=== PATIENT | female | born 1960 | race Caucasian/White ===

== ENCOUNTER 2018-02-28 09:34 | Day surgery (SDC) | payer OTHER, SELFPAY ==
[2018-02-28 09:54] VITALS: BP 142/81; PULSE 76; RESP 18; TEMP 36.7; O2SAT 96; BMI 33.4
--- NOTE | 2018-02-28 10:28 | RAD_ITS ---
STUDY: X-RAY - LUMBAR SPINE REASON FOR EXAM: Female, 57 years old. Radiofrequency ablation of L3-S1 in the OR. TECHNIQUE: 14 intraoperative view(s) of the lumbar spine were obtained. COMPARISON: None FINDINGS: Images demonstrate placement of needles at the what is assumed to be the left facet joints at L3-S1. There is evidence of posterior fusion of L4-5. Please refer to the operative report for further details. RAD/L/S Spine Min 4 Views IMPRESSION: Radiofrequency ablation of L3-S1 in the OR. Electronically Signed: Humberto Dunn DO at 13:34 EDT Tel [phone], Service support ,
[2018-02-28] MEDS: Bupivacaine 0.25% 30 ML Vial (10:37)
[2018-02-28] MEDS: MethylPREDNISolone Acetate 80 MG/ML Vial (10:41)
[2018-02-28 10:59] VITALS: BP 136/81; BP 142/81; PULSE 88; RESP 16; TEMP 36.8; O2SAT 98
[2018-02-28 11:05] VITALS: BP 122/67; BP 142/81; PULSE 77; RESP 18; O2SAT 97
[2018-02-28 11:10] VITALS: BP 132/90; BP 142/81; PULSE 72; RESP 18; O2SAT 95
[2018-02-28 11:15] VITALS: BP 142/81; BP 147/96; PULSE 80; RESP 18; TEMP 36.9; O2SAT 75
[2018-02-28 11:35] VITALS: BP 142/81
--- NOTE | 2018-02-28 13:39 | PCM.OPRPT ---
Problem List (1) Degeneration of lumbar or lumbosacral intervertebral disc Status: Chronic (2) Spondylosis of lumbosacral region without myelopathy or radiculopathy Status: Chronic Report of Operation Date of Procedure: 02/28/18 Pre-Operative Diagnosis: Lumbosacral spondylosis, lumbosacral degenerative disc disease, lumbar facet arthropathy Post-Operative Diagnosis: Lumbosacral spondylosis, lumbosacral degenerative disc disease, lumbar facet arthropathy Surgery/Procedure Performed:: Left sided lumbar radiofrequency ablation of the medial branch at L3, L4, L5, S1 Description of Surgical Findings:: PROCEDURE: Left-sided radiofrequency ablation of the medial branch L3, L4, L5, S1 PREOPERATIVE DIAGNOSES: Lumbosacral spondylosis, lumbosacral degenerative disc disease, lumbar facet arthropathy POSTOPERATIVE DIAGNOSES: Lumbosacral spondylosis, lumbosacral degenerative disc disease, lumbar facet arthropathy ANESTHESIA: MAC COMPLICATIONS: None BLOOD LOSS: Minimal PROCEDURE IN DETAIL: History and physical today was reviewed. Risks and benefits of procedure explained. The patient understood, agreed to the procedure and informed consent was obtained. IV inserted per routine protocol. The patient was taken to the operating room, placed in the prone position with a pillow positioned underneath the abdomen. The left side of the lower back was prepped and draped in a sterile fashion using iodine x 3. Under fluoroscopy guidance, on an oblique view, the L3 through S1 vertebral bodies were visualized. The skin and subcutaneous tissue was anesthetized with approximately 10 mL of 1% lidocaine using a 25-gauge regular needle. Under direct visualization with fluoroscopy at approximately 25-degree angle, starting on the left L3, ending on the left S1 passing through the L4-L5 using a 20-gauge 15 cm with a 10 mm curved active tip radiofrequency ablation needle the needle passed through the skin. The tip of the needle was maneuvered and directed towards the superior and medial gutter of the transverse process at the vicinity of the medial branch. Once the tip of the needle was in contact with the bone, the needle pulled approximately 2 mm up the bone. The stylet of each needle was then removed. After negative aspiration of blood with CSF and confirmation of AP as well as oblique view, radiofrequency ablation probe was then inserted at each level. Impedance was then recorded at L3 to be 241, at L4 262, at L5 295, at S1 257 ohm. Motor-evoked potential was then initiated to 1.5 volt without any motor response at each corresponding level. The probe was then removed intact and a total of 6 mL preservative-free 1% lidocaine was injected in divided doses between those 4 levels after negative aspiration of blood with CSF. The radiofrequency ablation probe was then reinserted after confirmation of AP, oblique as well as lateral view. Radiofrequency ablation was then initiated to 80 degrees Celsius for 90 seconds at each level. Once concluded, the probe was then removed intact and a total of 6 mL of preservative-free 0.25% Marcaine with 40 mg Depo-Medrol was injected in divided doses between those 4 levels. The needles were then removed intact. The patient experienced no signs or symptoms of intrathecal, intravascular injection. The patient experienced no paraesthesia. The procedure was completed without any apparent difficulty, any complication. The patient appeared to tolerate well. Sensory as well as motor exam was unchanged from prior to procedure. ASSESSMENT AND PLAN: This is a 57-year-old Female with lumbosacral spondylosis, lumbosacral degenerative disc disease, lumbar facet arthropathy, status post left-sided radiofrequency ablation of the medial branch L3 through S1. The patient will continue her current medications. The patient will follow up in approximately 2 weeks for reevaluation.
== END 2018-02-28 11:35 | disposition home or self-care (01) ==
LOC: SDC 09:35 → AC 09:37
PROVIDERS: Family Provider Student in an Organized Health Care Education/Training Program; PCP Student in an Organized Health Care Education/Training Program; Visit Provider Anesthesiology Pain Medicine
PROC: (CPT 64635; principal; 2018-02-28 10:45)
DX: M51.17 Intervertebral disc disorders with radiculopathy, lumbosacral region (principal); M47.27 Other spondylosis with radiculopathy, lumbosacral region; M96.1 Postlaminectomy syndrome, not elsewhere classified; M46.1 Sacroiliitis, not elsewhere classified; M79.1 Myalgia; M25.552 Pain in left hip; M53.3 Sacrococcygeal disorders, not elsewhere classified; K21.9 Gastro-esophageal reflux disease without esophagitis; F17.200 Nicotine dependence, unspecified, uncomplicated; Z79.891 Long term (current) use of opiate analgesic; Z79.899 Other long term (current) drug therapy
CPT/HCPCS: 01936; 64635; 64636; 72110; 76000; J7120

== ENCOUNTER → 2018-08-16 07:13 | Outpatient (CLI) | payer OTHER, SELFPAY ==
--- NOTE | 2018-08-16 07:17 | CT_ITS ---
STUDY: CT PELVIS WITHOUT CONTRAST REASON FOR EXAM: Female, 58 years old. Pain in the sacroiliac joints RADIATION DOSAGE (If Supplied By Facility): CTDIvol = ( 28.21 ) mGy, DLP = ( 926.37 ) mGycm TECHNIQUE: Transaxial imaging of the pelvis was performed without oral contrast, and without intravenous administration of contrast material. Sagittal and coronal reconstructions were performed. Individualized dose optimization techniques were used for this CT. COMPARISON: None. FINDINGS: The urinary bladder is unremarkable. The visualized small bowel is unremarkable. There are diverticula in the distal colon without adjacent stranding. There are surgical changes at the rectosigmoid junction. The appendix is surgically absent. There is no pelvic fluid. There is no pelvic mass lesion or significant lymphadenopathy. The uterus is normal in appearance. There are no discrete masses seen in the adnexal regions. There are phleboliths in the lower pelvis bilaterally. The pelvic vessels are normal in appearance. The soft tissues are unremarkable. There are surgical changes in the disc at L4-5 as well as bilateral pedicle screws and rods at L4 and L5. There is moderate disc space narrowing at L5-S1 with disc bulge. There is minimal retrolisthesis of L5 on S1. The hip joints are normal in appearance. There is minimal vacuum phenomenon in the sacroiliac joints without osteophyte formation or significant narrowing. CT/Pelvis without IV Contrast IMPRESSION: There are mild degenerative changes in the sacroiliac joints bilaterally. There are moderate degenerative disc changes at L5-S1. There are surgical changes at L4-5. There are no acute abnormalities in the pelvis. There is mild diverticulosis of the distal colon. There is no ascites. Electronically Signed: Dea Coombs MD at 21:41 EST Tel Direct: [phone], Service support ,
--- NOTE | 2018-08-16 07:26 | NM_ITS ---
CLINICAL: 58-year-old female with reported history of low back discomfort. WHOLE BODY 99m Tc MDP RADIONUCLIDE BONE SCINTIGRAPHY COMPARISON: CT of the pelvis report 08/16/2018 FINDINGS: Following the intravenous administration of 23.7 mCi of 99m Tc MDP, whole body bone images reveal: 1. Increased radiopharmaceutical concentration is identified in the fifth lumbar vertebra posteriorly on the left and right. 2. Enhanced uptake is visualized in the left hip involving the inferior anterior acetabulum, the acromioclavicular compartments of both shoulders. 3. The remaining skeletal structures are scintigraphically unremarkable with normal-appearing renal images and urinary bladder activity identified. NM/Bone Scan Whole Body IMPRESSION: 1. The increase in radiopharmaceutical concentration defined in the fifth lumbar vertebra is most consistent with postoperative degenerative change. If infectious etiology is a diagnostic consideration, correlation with labeled leukocyte imaging is recommended. 2. Facilitated uptake noted in the left hip and bilateral shoulders is most consistent with degenerative arthritis. Electronically Signed: Stalin Gamez DO at 23:48 EST Tel , Service support ,
== END ==
PROVIDERS: Family Provider Student in an Organized Health Care Education/Training Program; PCP Student in an Organized Health Care Education/Training Program; Referring Provider Orthopaedic Surgery; Visit Provider Orthopaedic Surgery
DX: M48.061 Spinal stenosis, lumbar region without neurogenic claudication (principal)
CPT/HCPCS: 72192; 78306

== ENCOUNTER → 2019-08-30 09:55 | Outpatient (CLI) | payer OTHER, SELFPAY ==
[2019-08-30 12:24] LABS: Erythrocyte Sedimentation Rate 11 mm/hr (0-30)
[2019-08-30 12:28] LABS: Color, Urine Yellow (Yellow); Glucose, Dipstick Normal (Normal); Ketone-Dipstick 5 mg/dl (Negative); Leukocyte Esterase-Dipstick 25 /ul (Negative); Nitrite-Dipstick Negative (Negative); Occult Blood-Urine Negative /ul (Negative); Protein-Dipstick Negative (Negative); Urine Bilirubin Dipstick Negative (Negative); Urine Clarity Sl. Cloudy (Clear); Urine Urobilinogen Normal (Normal)
[2019-08-30 12:32] LABS: Absolute Lymphocyte Count 2.95 X10^3/uL (0.83-4.51); Absolute Neutrophil Count 4.4 X10^3/uL (2.0-7.7); Basophil# 0.07 X10^3/uL; Basophil% 0.8 % (0-1); Eosinophils% 3.6 % (0-5); Hematocrit 43.4 % (37-47); Hemoglobin 13.9 g/dL (12.0-15.0); Lymphocyte # 2.95 X10^3/ul (4.0); Lymphocyte % 35.7 % (19-41); Mean Corpuscular Hgb 32.3 pg (27.0-32.0); Mean Corpuscular Volume 100.7 fL (81-99); Mean Platelet Vol. 9.3 fl (6.2-12.0); Monocyte# 0.54 X10^3/uL; Monocyte% 6.5 % (0-10); NRBC Flagged by Analyzer 0 % (0-5); Neutrophil # 4.38 X10^3/uL (2.7-7.7); Neutrophil % 53.2 % (47-70); Platelet Count 348 K/mm3 (150-450); RBC Distribution Width CV 12.4 % (11.6-14.6); RBC Distribution Width SD 46.5 fl (35.1-43.9); Red Blood Count 4.31 M/mm3 (4.2-5.4); White Blood Count 8.3 K/mm3 (4.4-11.0)
[2019-08-30 12:36] LABS: ALB/GLOB Ratio 1.1 RATIO (0.9-2.4); AST(SGOT) 15 U/L (15-37); Alanine Aminotransfer ALT/SGPT 28 U/L (13-56); Albumin, Serum 3.8 g/dL (3.2-5.0); Alkaline Phosphatase 91 U/L (45-117); Anion Gap 6 (5-15); BUN 11 mg/dL (7-18); BUN/Creat Ratio 14.2 RATIO (10-20); CRP 3.43 mg/L (0.0-3.0); Calcium,Total 8.7 mg/dL (8.5-10.1); Chloride 106 mmol/L (98-107); Creatinine, Serum 0.77 mg/dL (0.55-1.02); EST Glomerular Filtration Rate 81 mL/min (>60); Est Glom Filt Rate - Afr Amer 98 mL/min (>60); Globulin 3.6 g/dL (2.2-4.2); Glucose 91 mg/dL (74-106); Potassium 3.9 mmol/L (3.5-5.1); Protein, Total 7.4 g/dL (6.4-8.2); Red Blood Cells-Urine 0 SEEN /hpf (0-5); Rheumatoid Factor < 10.0 IU/mL (<15); Sodium Level 141 mmol/L (136-145); White Blood Cells 0-5 SEEN /hpf (0-5)
[2019-08-30 12:37] LABS: Bacteria RARE /hpf (None Seen); Mucous, Urine RARE /hpf (<or=2+); Squamous Epithelial Cells - UA 5-10 SEEN /hpf (5-10)
[2019-09-01 16:21] LABS: Anti-Nuclear Antibody Test Negative (.)
== END ==
PROVIDERS: Family Provider Student in an Organized Health Care Education/Training Program; PCP Student in an Organized Health Care Education/Training Program; Referring Provider Dermatology; Visit Provider Dermatology
DX: M31.0 Hypersensitivity angiitis (principal)
CPT/HCPCS: 36415; 80053; 81001; 85025; 85652; 86038; 86140; 86431

== ENCOUNTER → 2019-09-22 10:44 | Outpatient (CLI) | payer OTHER, SELFPAY ==
[2019-09-22 11:07] LABS: Mucous, Urine 0 SEEN /hpf (<or=2+); Red Blood Cells-Urine 0 SEEN /hpf (0-5)
[2019-09-22 12:38] LABS: Color, Urine Yellow (Yellow); Glucose, Dipstick Normal (Normal); Ketone-Dipstick 5 mg/dl (Negative); Leukocyte Esterase-Dipstick 25 /ul (Negative); Nitrite-Dipstick Negative (Negative); Occult Blood-Urine Negative /ul (Negative); Protein-Dipstick Negative (Negative); Specific Gravity, Urine 1.015 (1.002-1.030); Urine Bilirubin Dipstick Negative (Negative); Urine Clarity Sl. Cloudy (Clear); Urine Urobilinogen 1 mg/dl (Normal); Urine pH 6.5 (5.0 - 8.0)
[2019-09-22 12:45] LABS: Bacteria 1+ /hpf (None Seen); Squamous Epithelial Cells - UA 0-5 SEEN /hpf (5-10); White Blood Cells 0-5 SEEN /hpf (0-5)
[2019-09-22 12:47] LABS: ALB/GLOB Ratio 0.9 RATIO (0.9-2.4); AST(SGOT) 15 U/L (15-37); Alanine Aminotransfer ALT/SGPT 28 U/L (13-56); Albumin, Serum 3.4 g/dL (3.2-5.0); Alkaline Phosphatase 84 U/L (45-117); Anion Gap 6 (5-15); BUN 12 mg/dL (7-18); BUN/Creat Ratio 16.4 RATIO (10-20); Calcium,Total 8.2 mg/dL (8.5-10.1); Chloride 107 mmol/L (98-107); Creatinine, Serum 0.73 mg/dL (0.55-1.02); EST Glomerular Filtration Rate 86 mL/min (>60); Est Glom Filt Rate - Afr Amer 104 mL/min (>60); Globulin 3.6 g/dL (2.2-4.2); Glucose 102 mg/dL (74-106); Sodium Level 140 mmol/L (136-145)
[2019-09-24 11:31] LABS: ASO Titer < 20.0 IU/mL (0.0-200.0)
[2019-09-25 12:07] LABS: SJOGREN'S Anti-SS-A test < 0.2 AI (0.0-0.9)
[2019-09-25 16:04] LABS: SJOGREN'S Anti-SS-B test < 0.2 AI (0.0-0.9)
== END ==
PROVIDERS: Family Provider Student in an Organized Health Care Education/Training Program; PCP Student in an Organized Health Care Education/Training Program; Referring Provider Dermatology; Visit Provider Dermatology
DX: M31.0 Hypersensitivity angiitis (principal); L57.0 Actinic keratosis
CPT/HCPCS: 36415; 80053; 81001; 86060; 86235

== ENCOUNTER → 2019-12-20 | Outpatient (CLI) | payer OTHER, SELFPAY ==
[2019-12-20 10:07] LABS: Absolute Lymphocyte Count 4.29 X10^3/uL (0.83-4.51); Absolute Neutrophil Count 4.7 X10^3/uL (2.0-7.7); Basophil# 0.05 X10^3/uL; Basophil% 0.5 % (0-1); Hematocrit 43.7 % (37-47); Hemoglobin 13.7 g/dL (12.0-15.0); Lymphocyte # 4.29 X10^3/ul (4.0); Lymphocyte % 43.2 % (19-41); Mean Corp Hgb Conc 31.4 g/dL (32-36); Mean Corpuscular Hgb 31.8 pg (27.0-32.0); Mean Corpuscular Volume 101.4 fL (81-99); Mean Platelet Vol. 9.2 fl (6.2-12.0); Monocyte# 0.62 X10^3/uL; Monocyte% 6.2 % (0-10); NRBC Flagged by Analyzer 0 % (0-5); Neutrophil # 4.74 X10^3/uL (2.7-7.7); Neutrophil % 47.8 % (47-70); Platelet Count 375 K/mm3 (150-450); RBC Distribution Width CV 12.3 % (11.6-14.6); RBC Distribution Width SD 46.5 fl (35.1-43.9); Red Blood Count 4.31 M/mm3 (4.2-5.4); White Blood Count 9.9 K/mm3 (4.4-11.0)
[2019-12-20 10:37] LABS: AST(SGOT) 12 U/L (15-37); Alanine Aminotransfer ALT/SGPT 25 U/L (13-56); Albumin, Serum 3.7 g/dL (3.2-5.0); Alkaline Phosphatase 83 U/L (45-117); Anion Gap 9 (5-15); BUN 8 mg/dL (7-18); BUN/Creat Ratio 11.3 RATIO (10-20); CRP < 2.90 mg/L (0.0-3.0); Calcium,Total 8.9 mg/dL (8.5-10.1); Chloride 109 mmol/L (98-107); Creatinine, Serum 0.71 mg/dL (0.55-1.02); EST Glomerular Filtration Rate 90 mL/min (>60); Est Glom Filt Rate - Afr Amer 109 mL/min (>60); Globulin 3.8 g/dL (2.2-4.2); Glucose 83 mg/dL (74-106); Potassium 3.7 mmol/L (3.5-5.1); Protein, Total 7.5 g/dL (6.4-8.2); Rheumatoid Factor < 10.0 IU/mL (<15); Sodium Level 144 mmol/L (136-145)
[2019-12-20 10:58] LABS: Erythrocyte Sedimentation Rate 10 mm/hr (0-30)
[2019-12-20 11:06] LABS: Hepatitis B Surface Antibody Non-Reactive; Hepatitis B Surface Antigen Non-Reactive (Nonreactive); Hepatitis C Antibody Non-Reactive (Nonreactive)
[2019-12-22 10:15] LABS: CCP IgG Antibodies 10 units (0-19); Hepatitis B Core AB IgM Negative (Negative)
== END | disposition home or self-care (01) ==
LOC: MTLAB 07:06
PROVIDERS: PCP Student in an Organized Health Care Education/Training Program; Referring Provider Internal Medicine Rheumatology; Visit Provider Internal Medicine Rheumatology
DX: M06.4 Inflammatory polyarthropathy (principal); M79.7 Fibromyalgia; M35.00 Sjogren syndrome, unspecified; Q66.71 Congenital pes cavus, right foot; K21.9 Gastro-esophageal reflux disease without esophagitis; K58.0 Irritable bowel syndrome with diarrhea; M47.897 Other spondylosis, lumbosacral region; I10 Essential (primary) hypertension; J45.909 Unspecified asthma, uncomplicated; K57.90 Diverticulosis of intestine, part unspecified, without perforation or abscess without bleeding
CPT/HCPCS: 36415; 80053; 85025; 85652; 86140; 86200; 86431; 86705; 86706; 86803; 87340

== ENCOUNTER → 2020-04-03 | Outpatient (CLI) | payer OTHER, SELFPAY ==
[2020-04-03 14:06] LABS: ALB/GLOB Ratio 1.1 RATIO (0.9-2.4); AST(SGOT) 11 U/L (15-37); Alanine Aminotransfer ALT/SGPT 28 U/L (13-56); Albumin, Serum 4.1 g/dL (3.2-5.0); Alkaline Phosphatase 81 U/L (45-117); Anion Gap 7 (5-15); BUN 8 mg/dL (7-18); BUN/Creat Ratio 10.6 RATIO (10-20); Calcium,Total 9.3 mg/dL (8.5-10.1); Chloride 105 mmol/L (98-107); Creatinine, Serum 0.75 mg/dL (0.55-1.02); EST Glomerular Filtration Rate 83 mL/min (>60); Est Glom Filt Rate - Afr Amer 101 mL/min (>60); Globulin 3.8 g/dL (2.2-4.2); Glucose 101 mg/dL (74-106); Lipase 68 U/L (73-393); Potassium 4.1 mmol/L (3.5-5.1); Protein, Total 7.9 g/dL (6.4-8.2); Sodium Level 140 mmol/L (136-145)
== END | disposition home or self-care (01) ==
LOC: LABSPEC 13:32
PROVIDERS: PCP Student in an Organized Health Care Education/Training Program; Referring Provider Registered Nurse; Visit Provider Registered Nurse
DX: R10.9 Unspecified abdominal pain (principal)
CPT/HCPCS: 80053; 83690

== ENCOUNTER → 2020-05-30 | Outpatient (CLI) | payer OTHER, SELFPAY ==
[2020-05-30 09:52] LABS: Absolute Lymphocyte Count 3.04 X10^3/uL (0.83-4.51); Absolute Neutrophil Count 4.1 X10^3/uL (2.0-7.7); Basophil# 0.07 X10^3/uL; Basophil% 0.9 % (0-1); Eosinophil# 0.33 X10^3/uL; Eosinophils% 4.1 % (0-5); Hematocrit 45.1 % (37-47); Hemoglobin 14.3 g/dL (12.0-15.0); Lymphocyte # 3.04 X10^3/ul (4.0); Lymphocyte % 37.7 % (19-41); Mean Corp Hgb Conc 31.7 g/dL (32-36); Mean Corpuscular Hgb 32.4 pg (27.0-32.0); Monocyte# 0.49 X10^3/uL; Monocyte% 6.1 % (0-10); NRBC Flagged by Analyzer 0 % (0-5); Neutrophil % 50.8 % (47-70); Platelet Count 354 K/mm3 (150-450); RBC Distribution Width CV 12.7 % (11.6-14.6); RBC Distribution Width SD 48.2 fl (35.1-43.9); Red Blood Count 4.42 M/mm3 (4.2-5.4); White Blood Count 8.1 K/mm3 (4.4-11.0)
[2020-05-30 10:14] LABS: AST(SGOT) 13 U/L (15-37); Alanine Aminotransfer ALT/SGPT 25 U/L (13-56); Albumin, Serum 3.7 g/dL (3.2-5.0); Alkaline Phosphatase 84 U/L (45-117); Anion Gap 3 (5-15); BUN 8 mg/dL (7-18); BUN/Creat Ratio 11.2 RATIO (10-20); Calcium,Total 8.8 mg/dL (8.5-10.1); Chloride 107 mmol/L (98-107); Creatinine, Serum 0.71 mg/dL (0.55-1.02); EST Glomerular Filtration Rate 88 mL/min (>60); Est Glom Filt Rate - Afr Amer 107 mL/min (>60); Globulin 3.6 g/dL (2.2-4.2); Glucose 91 mg/dL (74-106); Potassium 3.9 mmol/L (3.5-5.1); Protein, Total 7.3 g/dL (6.4-8.2); Sodium Level 141 mmol/L (136-145)
== END | disposition home or self-care (01) ==
LOC: LAB 07:06
PROVIDERS: PCP Student in an Organized Health Care Education/Training Program; Referring Provider Internal Medicine Rheumatology; Visit Provider Internal Medicine Rheumatology
DX: M06.4 Inflammatory polyarthropathy (principal); M79.7 Fibromyalgia; M35.00 Sjogren syndrome, unspecified; Q66.71 Congenital pes cavus, right foot; K21.9 Gastro-esophageal reflux disease without esophagitis; K57.90 Diverticulosis of intestine, part unspecified, without perforation or abscess without bleeding; K58.0 Irritable bowel syndrome with diarrhea; M47.897 Other spondylosis, lumbosacral region; I10 Essential (primary) hypertension; J45.909 Unspecified asthma, uncomplicated
CPT/HCPCS: 36415; 80053; 85025

== ENCOUNTER → 2020-06-27 | Outpatient (CLI) | payer OTHER, SELFPAY ==
[2020-06-27 10:08] LABS: Absolute Lymphocyte Count 2.63 X10^3/uL (0.83-4.51); Absolute Neutrophil Count 4.6 X10^3/uL (2.0-7.7); Basophil# 0.05 X10^3/uL; Basophil% 0.6 % (0-1); Eosinophil# 0.24 X10^3/uL; Hematocrit 44.1 % (37-47); Hemoglobin 14.2 g/dL (12.0-15.0); Lymphocyte # 2.63 X10^3/ul (4.0); Lymphocyte % 32.8 % (19-41); Mean Corp Hgb Conc 32.2 g/dL (32-36); Mean Corpuscular Hgb 32.5 pg (27.0-32.0); Mean Corpuscular Volume 100.9 fL (81-99); Mean Platelet Vol. 9.1 fl (6.2-12.0); Monocyte# 0.47 X10^3/uL; Monocyte% 5.9 % (0-10); NRBC Flagged by Analyzer 0 % (0-5); Neutrophil % 57.3 % (47-70); Platelet Count 351 K/mm3 (150-450); RBC Distribution Width CV 12.4 % (11.6-14.6); RBC Distribution Width SD 46.5 fl (35.1-43.9); Red Blood Count 4.37 M/mm3 (4.2-5.4)
[2020-06-27 10:33] LABS: ALB/GLOB Ratio 1.1 RATIO (0.9-2.4); AST(SGOT) 18 U/L (15-37); Alanine Aminotransfer ALT/SGPT 29 U/L (13-56); Albumin, Serum 3.7 g/dL (3.2-5.0); Alkaline Phosphatase 79 U/L (45-117); Anion Gap 6 (5-15); BUN 8 mg/dL (7-18); BUN/Creat Ratio 11.4 RATIO (10-20); Chloride 107 mmol/L (98-107); EST Glomerular Filtration Rate 91 mL/min (>60); Est Glom Filt Rate - Afr Amer 110 mL/min (>60); Globulin 3.5 g/dL (2.2-4.2); Glucose 91 mg/dL (74-106); Potassium 3.7 mmol/L (3.5-5.1); Protein, Total 7.2 g/dL (6.4-8.2); Sodium Level 142 mmol/L (136-145)
== END | disposition home or self-care (01) ==
LOC: MTLAB 07:10
PROVIDERS: PCP Student in an Organized Health Care Education/Training Program; Referring Provider Internal Medicine Rheumatology; Visit Provider Internal Medicine Rheumatology
DX: M06.4 Inflammatory polyarthropathy (principal); M79.7 Fibromyalgia; M35.00 Sjogren syndrome, unspecified; Q66.71 Congenital pes cavus, right foot; K21.9 Gastro-esophageal reflux disease without esophagitis; K58.0 Irritable bowel syndrome with diarrhea; M47.897 Other spondylosis, lumbosacral region; I10 Essential (primary) hypertension; J45.909 Unspecified asthma, uncomplicated; K57.90 Diverticulosis of intestine, part unspecified, without perforation or abscess without bleeding; Z79.899 Other long term (current) drug therapy
CPT/HCPCS: 36415; 80053; 85025

== ENCOUNTER → 2020-08-23 07:51 | Outpatient (CLI) | payer OTHER, SELFPAY ==
[2020-08-23 09:51] LABS: Absolute Lymphocyte Count 2.92 X10^3/uL (0.83-4.51); Absolute Neutrophil Count 6.3 X10^3/uL (2.0-7.7); Basophil# 0.07 X10^3/uL; Basophil% 0.7 % (0-1); Eosinophil# 0.33 X10^3/uL; Eosinophils% 3.2 % (0-5); Hematocrit 42.9 % (37-47); Hemoglobin 13.6 g/dL (12.0-15.0); Lymphocyte # 2.92 X10^3/ul (4.0); Lymphocyte % 28.6 % (19-41); Mean Corp Hgb Conc 31.7 g/dL (32-36); Mean Corpuscular Hgb 32.4 pg (27.0-32.0); Mean Corpuscular Volume 102.1 fL (81-99); Mean Platelet Vol. 9.3 fl (6.2-12.0); Monocyte# 0.59 X10^3/uL; Monocyte% 5.8 % (0-10); NRBC Flagged by Analyzer 0 % (0-5); Neutrophil # 6.28 X10^3/uL (2.7-7.7); Neutrophil % 61.4 % (47-70); Platelet Count 351 K/mm3 (150-450); RBC Distribution Width CV 13.3 % (11.6-14.6); White Blood Count 10.2 K/mm3 (4.4-11.0)
[2020-08-23 10:13] LABS: ALB/GLOB Ratio 1.1 RATIO (0.9-2.4); AST(SGOT) 12 U/L (15-37); Alanine Aminotransfer ALT/SGPT 22 U/L (13-56); Albumin, Serum 3.7 g/dL (3.2-5.0); Alkaline Phosphatase 87 U/L (45-117); Anion Gap 5 (5-15); BUN 9 mg/dL (7-18); BUN/Creat Ratio 11.7 RATIO (10-20); Calcium,Total 8.6 mg/dL (8.5-10.1); Chloride 107 mmol/L (98-107); Creatinine, Serum 0.77 mg/dL (0.55-1.02); EST Glomerular Filtration Rate 81 mL/min (>60); Est Glom Filt Rate - Afr Amer 98 mL/min (>60); Globulin 3.4 g/dL (2.2-4.2); Glucose 95 mg/dL (74-106); Potassium 3.7 mmol/L (3.5-5.1); Protein, Total 7.1 g/dL (6.4-8.2); Sodium Level 141 mmol/L (136-145)
== END ==
PROVIDERS: PCP Student in an Organized Health Care Education/Training Program; Referring Provider Internal Medicine Rheumatology; Visit Provider Internal Medicine Rheumatology
DX: M06.4 Inflammatory polyarthropathy (principal); M79.7 Fibromyalgia; M35.00 Sjogren syndrome, unspecified; Q66.71 Congenital pes cavus, right foot; K21.9 Gastro-esophageal reflux disease without esophagitis; K58.0 Irritable bowel syndrome with diarrhea; M47.897 Other spondylosis, lumbosacral region; I10 Essential (primary) hypertension; J45.909 Unspecified asthma, uncomplicated; K57.90 Diverticulosis of intestine, part unspecified, without perforation or abscess without bleeding; Z79.899 Other long term (current) drug therapy
CPT/HCPCS: 36415; 80053; 85025

== ENCOUNTER → 2020-09-27 08:02 | Outpatient (CLI) | payer OTHER, SELFPAY ==
[2020-09-27 10:08] LABS: Absolute Lymphocyte Count 4.16 X10^3/uL (0.83-4.51); Absolute Neutrophil Count 7.7 X10^3/uL (2.0-7.7); Basophil# 0.09 X10^3/uL; Basophil% 0.7 % (0-1); Eosinophil# 0.13 X10^3/uL; Hematocrit 44.1 % (37-47); Hemoglobin 13.7 g/dL (12.0-15.0); Lymphocyte # 4.16 X10^3/ul (4.0); Lymphocyte % 32.2 % (19-41); Mean Corp Hgb Conc 31.1 g/dL (32-36); Mean Corpuscular Hgb 31.9 pg (27.0-32.0); Mean Corpuscular Volume 102.8 fL (81-99); Mean Platelet Vol. 8.9 fl (6.2-12.0); Monocyte# 0.79 X10^3/uL; Monocyte% 6.1 % (0-10); NRBC Flagged by Analyzer 0 % (0-5); Neutrophil % 59.5 % (47-70); Platelet Count 420 K/mm3 (150-450); RBC Distribution Width CV 13.6 % (11.6-14.6); Red Blood Count 4.29 M/mm3 (4.2-5.4); White Blood Count 12.9 K/mm3 (4.4-11.0)
[2020-09-27 10:36] LABS: ALB/GLOB Ratio 1.2 RATIO (0.9-2.4); AST(SGOT) 8 U/L (15-37); Alanine Aminotransfer ALT/SGPT 26 U/L (13-56); Albumin, Serum 3.7 g/dL (3.2-5.0); Alkaline Phosphatase 88 U/L (45-117); Anion Gap 3 (5-15); BUN 13 mg/dL (7-18); BUN/Creat Ratio 17.9 RATIO (10-20); Calcium,Total 8.5 mg/dL (8.5-10.1); Chloride 107 mmol/L (98-107); Creatinine, Serum 0.73 mg/dL (0.55-1.02); EST Glomerular Filtration Rate 87 mL/min (>60); Est Glom Filt Rate - Afr Amer 105 mL/min (>60); Globulin 3.2 g/dL (2.2-4.2); Glucose 89 mg/dL (74-106); Potassium 4.2 mmol/L (3.5-5.1); Protein, Total 6.9 g/dL (6.4-8.2); Sodium Level 140 mmol/L (136-145)
== END ==
PROVIDERS: PCP Student in an Organized Health Care Education/Training Program; Referring Provider Internal Medicine Rheumatology; Visit Provider Internal Medicine Rheumatology
DX: M06.4 Inflammatory polyarthropathy (principal); M79.7 Fibromyalgia; M35.00 Sjogren syndrome, unspecified; Q66.71 Congenital pes cavus, right foot; K21.9 Gastro-esophageal reflux disease without esophagitis; K58.0 Irritable bowel syndrome with diarrhea; M47.897 Other spondylosis, lumbosacral region; I10 Essential (primary) hypertension; J45.909 Unspecified asthma, uncomplicated; K57.90 Diverticulosis of intestine, part unspecified, without perforation or abscess without bleeding; Z79.899 Other long term (current) drug therapy
CPT/HCPCS: 36415; 80053; 85025

== ENCOUNTER → 2020-12-20 10:15 | Outpatient (CLI) | payer OTHER, SELFPAY ==
[2020-12-20 12:32] LABS: Absolute Neutrophil Count 4.9 X10^3/uL (2.0-7.7); Basophil# 0.07 X10^3/uL; Basophil% 0.7 % (0-1); Eosinophils% 3.2 % (0-5); Hematocrit 42.7 % (37-47); Hemoglobin 13.9 g/dL (12.0-15.0); Lymphocyte % 37.4 % (19-41); Mean Corp Hgb Conc 32.6 g/dL (32-36); Mean Corpuscular Volume 104.4 fL (81-99); Mean Platelet Vol. 9.2 fl (6.2-12.0); Monocyte# 0.59 X10^3/uL; Monocyte% 6.3 % (0-10); NRBC Flagged by Analyzer 0 % (0-5); Neutrophil # 4.86 X10^3/uL (2.7-7.7); Neutrophil % 52.1 % (47-70); Platelet Count 352 K/mm3 (150-450); RBC Distribution Width CV 12.9 % (11.6-14.6); RBC Distribution Width SD 48.8 fl (35.1-43.9); Red Blood Count 4.09 M/mm3 (4.2-5.4); White Blood Count 9.4 K/mm3 (4.4-11.0)
[2020-12-20 12:55] LABS: ALB/GLOB Ratio 1.1 RATIO (0.9-2.4); AST(SGOT) 13 U/L (15-37); Alanine Aminotransfer ALT/SGPT 25 U/L (13-56); Albumin, Serum 3.8 g/dL (3.2-5.0); Alkaline Phosphatase 85 U/L (45-117); Anion Gap 6 (5-15); BUN 8 mg/dL (7-18); BUN/Creat Ratio 9.7 RATIO (10-20); Calcium,Total 8.8 mg/dL (8.5-10.1); Chloride 106 mmol/L (98-107); Creatinine, Serum 0.82 mg/dL (0.55-1.02); EST Glomerular Filtration Rate 75 mL/min (>60); Est Glom Filt Rate - Afr Amer 91 mL/min (>60); Globulin 3.4 g/dL (2.2-4.2); Glucose 86 mg/dL (74-106); Potassium 4.3 mmol/L (3.5-5.1); Protein, Total 7.2 g/dL (6.4-8.2); Sodium Level 140 mmol/L (136-145)
== END ==
PROVIDERS: PCP Student in an Organized Health Care Education/Training Program; Referring Provider Internal Medicine Rheumatology; Visit Provider Internal Medicine Rheumatology
DX: M06.4 Inflammatory polyarthropathy (principal); M79.7 Fibromyalgia; M35.00 Sjogren syndrome, unspecified; Q66.71 Congenital pes cavus, right foot; K21.9 Gastro-esophageal reflux disease without esophagitis; K58.0 Irritable bowel syndrome with diarrhea; M47.897 Other spondylosis, lumbosacral region; I10 Essential (primary) hypertension; J45.909 Unspecified asthma, uncomplicated; K57.90 Diverticulosis of intestine, part unspecified, without perforation or abscess without bleeding; Z79.899 Other long term (current) drug therapy
CPT/HCPCS: 36415; 80053; 85025

== ENCOUNTER → 2021-03-14 08:23 | Outpatient (CLI) | payer OTHER, SELFPAY ==
[2021-03-14 10:03] LABS: Absolute Lymphocyte Count 4.11 X10^3/uL (0.83-4.51); Absolute Neutrophil Count 4.1 X10^3/uL (2.0-7.7); Basophil# 0.08 X10^3/uL; Basophil% 0.9 % (0-1); Eosinophil# 0.25 X10^3/uL; Eosinophils% 2.7 % (0-5); Hematocrit 42.1 % (37-47); Hemoglobin 13.4 g/dL (12.0-15.0); Lymphocyte # 4.11 X10^3/ul (0.83-4.51); Lymphocyte % 44.7 % (19-41); Mean Corp Hgb Conc 31.8 g/dL (32-36); Mean Corpuscular Hgb 33.1 pg (27.0-32.0); Mean Platelet Vol. 9.3 fl (6.2-12.0); Monocyte# 0.61 X10^3/uL; Monocyte% 6.6 % (0-10); NRBC Flagged by Analyzer 0 % (0-5); Neutrophil % 44.7 % (47-70); Platelet Count 350 K/mm3 (150-450); RBC Distribution Width CV 13.2 % (11.6-14.6); RBC Distribution Width SD 49.9 fl (35.1-43.9); Red Blood Count 4.05 M/mm3 (4.2-5.4); White Blood Count 9.2 K/mm3 (4.4-11.0)
[2021-03-14 10:28] LABS: ALB/GLOB Ratio 1.1 RATIO (0.9-2.4); AST(SGOT) 9 U/L (15-37); Alanine Aminotransfer ALT/SGPT 24 U/L (13-56); Albumin, Serum 3.4 g/dL (3.2-5.0); Alkaline Phosphatase 73 U/L (45-117); Anion Gap 5 (5-15); BUN 9 mg/dL (7-18); BUN/Creat Ratio 12.4 RATIO (10-20); Calcium,Total 8.2 mg/dL (8.5-10.1); Chloride 106 mmol/L (98-107); Creatinine, Serum 0.72 mg/dL (0.55-1.02); EST Glomerular Filtration Rate 87 mL/min (>60); Est Glom Filt Rate - Afr Amer 105 mL/min (>60); Globulin 3.2 g/dL (2.2-4.2); Glucose 89 mg/dL (74-106); Potassium 3.7 mmol/L (3.5-5.1); Protein, Total 6.6 g/dL (6.4-8.2); Sodium Level 140 mmol/L (136-145)
== END ==
PROVIDERS: PCP Student in an Organized Health Care Education/Training Program; Referring Provider Internal Medicine Rheumatology; Visit Provider Internal Medicine Rheumatology
DX: M06.4 Inflammatory polyarthropathy (principal); M79.7 Fibromyalgia; M35.00 Sjogren syndrome, unspecified; Q66.71 Congenital pes cavus, right foot; K21.9 Gastro-esophageal reflux disease without esophagitis; K58.0 Irritable bowel syndrome with diarrhea; M47.897 Other spondylosis, lumbosacral region; I10 Essential (primary) hypertension; J45.909 Unspecified asthma, uncomplicated; K57.90 Diverticulosis of intestine, part unspecified, without perforation or abscess without bleeding; Z79.899 Other long term (current) drug therapy
CPT/HCPCS: 36415; 80053; 85025

== ENCOUNTER → 2021-06-06 08:06 | Outpatient (CLI) | payer OTHER, SELFPAY ==
[2021-06-06 10:19] LABS: Absolute Lymphocyte Count 3.76 X10^3/uL (0.83-4.51); Absolute Neutrophil Count 3.5 X10^3/uL (2.0-7.7); Basophil# 0.04 X10^3/uL; Basophil% 0.5 % (0-1); Eosinophil# 0.18 X10^3/uL; Eosinophils% 2.3 % (0-5); Hematocrit 42.7 % (37-47); Hemoglobin 13.5 g/dL (12.0-15.0); Lymphocyte # 3.76 X10^3/ul (0.83-4.51); Lymphocyte % 47.1 % (19-41); Mean Corp Hgb Conc 31.6 g/dL (32-36); Mean Corpuscular Hgb 33.4 pg (27.0-32.0); Mean Corpuscular Volume 105.7 fL (81-99); Monocyte# 0.45 X10^3/uL; Monocyte% 5.6 % (0-10); NRBC Flagged by Analyzer 0 % (0-5); Neutrophil # 3.52 X10^3/uL (2.7-7.7); Neutrophil % 44.1 % (47-70); Platelet Count 312 K/mm3 (150-450); RBC Distribution Width CV 13.3 % (11.6-14.6); RBC Distribution Width SD 51.8 fl (35.1-43.9); Red Blood Count 4.04 M/mm3 (4.2-5.4)
[2021-06-06 10:37] LABS: AST(SGOT) 12 U/L (15-37); Alanine Aminotransfer ALT/SGPT 27 U/L (13-56); Albumin, Serum 3.3 g/dL (3.2-5.0); Alkaline Phosphatase 70 U/L (45-117); Anion Gap 5 (5-15); BUN 8 mg/dL (7-18); BUN/Creat Ratio 12.9 RATIO (10-20); Calcium,Total 8.4 mg/dL (8.5-10.1); Chloride 107 mmol/L (98-107); Creatinine, Serum 0.62 mg/dL (0.55-1.02); EST Glomerular Filtration Rate 104 mL/min (>60); Est Glom Filt Rate - Afr Amer 126 mL/min (>60); Globulin 3.3 g/dL (2.2-4.2); Glucose 108 mg/dL (74-106); Potassium 3.7 mmol/L (3.5-5.1); Protein, Total 6.6 g/dL (6.4-8.2); Sodium Level 141 mmol/L (136-145)
== END ==
PROVIDERS: PCP Student in an Organized Health Care Education/Training Program; Referring Provider Internal Medicine Rheumatology; Visit Provider Internal Medicine Rheumatology
DX: M06.4 Inflammatory polyarthropathy (principal); M79.7 Fibromyalgia; M35.00 Sjogren syndrome, unspecified; Q66.71 Congenital pes cavus, right foot; K21.9 Gastro-esophageal reflux disease without esophagitis; K58.0 Irritable bowel syndrome with diarrhea; M47.897 Other spondylosis, lumbosacral region; I10 Essential (primary) hypertension; J45.909 Unspecified asthma, uncomplicated; K57.90 Diverticulosis of intestine, part unspecified, without perforation or abscess without bleeding; Z79.899 Other long term (current) drug therapy
CPT/HCPCS: 36415; 80053; 85025

== ENCOUNTER 2022-02-11 08:09 | Inpatient (IN) | payer OTHER, SELFPAY ==
[2022-02-11] VITALS (14 sets, daily range): BP systolic 114–158; BP diastolic 61–78; PULSE 95–116; RESP 16–34; TEMP 37.1–38; O2SAT 91–100; BMI 35.2; BMI 35.1
--- NOTE | 2022-02-11 08:34 | EX.ED.DYSGE1 ---
HPI History of Present Illness Chief Complaint: Weakness Informant: patient and family Narrative Narrative: Here with daughter increasing weakness diarrhea and vomiting yesterday. On and off diarrhea for the past week. Nonbloody. Yesterday emesis with no hematemesis. Daughter reports she seems more confused. Spouse was up with her throughout the night. Reported confused on the day. No recent antibiotics. Diverticulitis with partial colectomy with anastomosis 15 years ago. Denies urinary symptoms. Denies cough or fevers. Status post Zofran by EMS still nauseated. No allergies. Patient was placed on oxygen on arrival was 91% on arrival was 95% room air by EMS she denied any cough or any aspiration with the emesis. Prior similar symptoms: No PFSH PFSH Medical History (Updated 02/11/22 @ 15:[address] Robbie Patten DO) Back pain Fusion of lumbar spine Medical History no medical history Home Medications budesonide-formoterol [Symbicort 160/4.5 Mcg Inhaler (SP)] 2 puff INHALATION BID PRN 02/22/18 [History Last Taken 02/10/22 08:00] gabapentin [Neurontin] 400 mg PO 4X/DAY 02/22/18 [History Last Taken 02/10/22] hydrocodone-acetaminophen 1 - 2 tab PO Q4H PRN PRN 02/22/18 [History Last Taken 02/10/22] lansoprazole [Prevacid] 15 mg PO QODAY 02/22/18 [History Last Taken 02/09/22] zolpidem [Ambien] 10 mg PO QHS 02/22/18 [History Last Taken Unknown] Allergy/AdvReac Type Severity Reaction Status Date / Time No Known Allergies Allergy Verified 02/22/18 11:53 Family History (Updated 02/11/22 @ 13:35 by Rosa Gray) Mother Breast cancer Father Esophageal cancer Surgical History History of colon resection Social History Smoking Status: Former smoker ROS ROS ED Constitutional Constitutional ED: Denies chills, fever(s) or sweats Eyes Eyes: Denies change in vision ENT ENT ED: Denies dysphagia or sore throat Cardiovascular Cardiovascular: Denies chest pain, leg edema, palpitations or racing heartbeat Respiratory/Chest Respiratory/Chest: Denies cough, dyspnea or dyspnea on exertion Gastrointestinal Gastrointestinal: Reports diarrhea, nausea and vomiting; Denies abdominal pain Genitourinary Genitourinary ED: Denies dysuria, hematuria or urinary frequency Musculoskeletal Musculoskeletal: Denies back pain, extremity pain or neck pain Integumentary Denies rash or wounds Neurologic Neurologic: Reports weakness; Denies headache(s) or paresthesias EXAM Physical Exam Const Vital Signs: 02/11/22 08:10 02/11/22 08:13 02/11/22 08:14 Temperature 99.3 F H 99.3 F H Temperature Source Temporal Temporal Pulse Rate 105 H 105 H Respiratory Rate 34 H 34 H Respiratory Effort Non-Labored Short of Breath Respiratory Pattern Tachypnea Blood Pressure 155/68 H 155/68 H Blood Pressure Mean 97 97 Pulse Ox 91 91 91 Oxygen Delivery Method Room Air Nasal Cannula Nasal Cannula Oxygen Flow Rate (L/min) 2 2 02/11/22 09:57 02/11/22 11:07 Temperature Temperature Source Pulse Rate 108 H 109 H Respiratory Rate 26 H 17 Respiratory Effort Respiratory Pattern Blood Pressure 157/76 H 132/70 H Blood Pressure Mean 103 90 Pulse Ox 100 93 Oxygen Delivery Method Nasal Cannula Room Air Oxygen Flow Rate (L/min) 2 Positive well nourished and well developed General Appearance ED: well developed and NAD HEENT Reports dry mucous membranes normocephalic and atraumatic Mouth ED: Yes dry mucous membranes Mouth: dry mucous membranes Eyes PERRL, EOMs intact bilaterally and conjunctivae normal General Eye ED: Yes normal appearance of both eyes Neck no lymphadenopathy and supple General: Negative for tenderness Chest Wall Chest: Negative for tenderness Resp normal respiratory effort and normal air movement Effort and Inspection: symmetric chest movement; Negative for respiratory distress Cardio regular rhythm and no murmurs Rate: tachycardic Peripheral Pulses: pulses 2+ throughout GI normal to inspection, nondistended, normoactive bowel sounds and non-tender GI Narrative: Negative Raymundo's or McBurney's tenderness. Palpation: Negative for guarding or rebound tenderness present Back/Spine no CVA tenderness and no thoracic nor lumbar tenderness Extremity normal to inspection General Extremety ED: Negative for edema or tenderness General Extremity: Negative for edema Neuro oriented x3 and no sensory deficits noted Sensorium / Orientation: awake and alert Skin no rashes or lesions noted and no wounds MDM MDM MDM Narrative Medical decision making narrative: Patient clinically dry on exam slightly tachycardic. Soft abdomen exam. Abdominal labs urine chest x-ray obtained. She given IV fluids and Zofran. Nausea controlled from this. Abdominal labs normal except for white count 13.7. Her creatinine 0.95 slightly up from 1.6 previously. BUN at 9. There is clinical dehydration component. On reevaluation she is resting more comfortably there is been no vomiting or diarrhea. Urine results return occult blood however no infectious findings she has no flank pain or colic symptoms. Chest x-ray 1 view reviewed by myself and read by radiology shows no acute process. She was taken off oxygen with no clinical symptoms. 1100: Attempted p.o. challenge able take a few sips however increasing stomach cramping. There is no emesis. Will obtain a CT scan abdomen pelvis for further evaluation due to her diarrhea and leukocytosis. CT scan negative. Still nauseated. Discussed with hospitalist Dr. Randhawa for admission. COVID testing sent due to diarrhea. Lab Data Attestation: I reviewed the patient's lab results. Labs: Laboratory Results - last 24 hr 02/11/22 02/11/22 02/11/22 08:50 08:50 08:50 WBC 13.7 H RBC 4.12 L Hgb 13.5 Hct 40.4 MCV 98.1 MCH 32.8 H MCHC 33.4 RDW Std Deviation 45.1 H RDW Coeff of Nikhil 12.4 Plt Count 278 MPV 8.7 Sodium 137 Potassium 3.5 Chloride 102 Carbon Dioxide 29.0 Anion Gap 6 BUN 9 Creatinine 0.95 Estim Creat Clear Calc 59.71 Est GFR (MDRD) Af Amer 76 Est GFR (MDRD) Non-Af 63 BUN/Creatinine Ratio 9.4 L Glucose 107 H Calcium 9.0 Phosphorus 3.2 Magnesium 1.7 Total Bilirubin 0.40 AST 16 ALT 25 Alkaline Phosphatase 69 Total Protein 7.0 Albumin 3.5 Globulin 3.5 Albumin/Globulin Ratio 1.0 Lipase 53 L Urine Color Urine Clarity Urine pH Ur Specific [place] Urine Protein Urine Glucose (UA) Urine Ketones Urine Occult Blood Urine Nitrite Urine Bilirubin Urine Urobilinogen Ur Leukocyte Esterase Urine RBC Urine WBC Ur Squamous Epith Cells Urine Bacteria Urine Mucus 02/11/22 10:05 WBC RBC Hgb Hct MCV MCH MCHC RDW Std Deviation RDW Coeff of Nikhil Plt Count MPV Sodium Potassium Chloride Carbon Dioxide Anion Gap BUN Creatinine Estim Creat Clear Calc Est GFR (MDRD) Af Amer Est GFR (MDRD) Non-Af BUN/Creatinine Ratio Glucose Calcium Phosphorus Magnesium Total Bilirubin AST ALT Alkaline Phosphatase Total Protein Albumin Globulin Albumin/Globulin Ratio Lipase Urine Color Yellow Urine Clarity Clear Urine pH 8.0 Ur Specific [place] 1.010 Urine Protein Negative Urine Glucose (UA) Normal Urine Ketones Negative Urine Occult Blood 25 H Urine Nitrite Negative Urine Bilirubin Negative Urine Urobilinogen Normal Ur Leukocyte Esterase Negative Urine RBC 0 SEEN Urine WBC 0-5 SEEN Ur Squamous Epith Cells 0 SEEN Urine Bacteria 0 SEEN Urine Mucus 0 SEEN Radiography Chest X-Ray - ED: 1 View, Read by ED Physician and Read by Radiologist Diagnostic Testing: Clinical Impression(s) from Imaging Studies Chest X-Ray 02/11/22 09:00 IMPRESSION: Normal x-ray examination of the chest. Electronically Signed: Sachin Luciano MD at 9:14 EDT , Abdomen/Pelvis CT 02/11/22 11:00 IMPRESSION: Status post primary colectomy in the fusion at the rectosigmoid junction. No acute abnormality is seen. Electronically Signed: Sachin Luciano MD at 11:34 EDT , Discharge Plan Dx/Rx/DC Orders Clinical Impression: Intractable nausea and vomiting, Acute diarrhea Disposition Disposition: Acute Care Hospital [facility] Discharge Date/Time: 02/11/22 12:52
[2022-02-11] MEDS: 0.9% Normal Saline 1,000 ML 1000 ML IV (08:55)
[2022-02-11] MEDS: Ondansetron 4 MG/2 ML Vial IV ×3 (08:55→17:41)
[2022-02-11 09:00] LABS: Hematocrit 40.4 % (37-47); Hemoglobin 13.5 g/dL (12.0-15.0); Mean Corp Hgb Conc 33.4 g/dL (32-36); Mean Corpuscular Hgb 32.8 pg (27.0-32.0); Mean Corpuscular Volume 98.1 fL (81-99); Mean Platelet Vol. 8.7 fl (6.2-12.0); Platelet Count 278 K/mm3 (150-450); RBC Distribution Width CV 12.4 % (11.6-14.6); RBC Distribution Width SD 45.1 fl (35.1-43.9); Red Blood Count 4.12 M/mm3 (4.2-5.4); White Blood Count 13.7 K/mm3 (4.4-11.0)
--- NOTE | 2022-02-11 09:00 | RAD_ITS ---
STUDY: X-RAY CHEST REASON FOR EXAM: Female, 61 years old. Weakness TECHNIQUE: Single AP portable view of the chest. COMPARISON: Comparison is made with prior study dated 08/18/2012. FINDINGS: EKG electrodes are seen. The lungs are clear and expanded. There is no demonstrated pleural abnormality. Normal size heart. Normal mediastinum and [place]. Normal visualized pulmonary arteries. Normal visualized aortic arch and descending thoracic aorta. Normal visualized thoracic spine. Normal visualized ribs, clavicles, and shoulders. There is no demonstrated abnormality of the visualized soft tissue structures of the upper abdomen. RAD/Chest 1 View (Portable) IMPRESSION: Normal x-ray examination of the chest. Electronically Signed: Sachin Luciano MD at 9:14 EDT ,
[2022-02-11 09:17] LABS: AST(SGOT) 16 U/L (15-37); Alanine Aminotransfer ALT/SGPT 25 U/L (13-56); Albumin, Serum 3.5 g/dL (3.2-5.0); Alkaline Phosphatase 69 U/L (45-117); Anion Gap 6 (5-15); BUN 9 mg/dL (7-18); BUN/Creat Ratio 9.4 RATIO (10-20); Chloride 102 mmol/L (98-107); Creatinine, Serum 0.95 mg/dL (0.55-1.02); EST Glomerular Filtration Rate 63 mL/min (>60); Est Glom Filt Rate - Afr Amer 76 mL/min (>60); Estimated Creatinine Clearance 59.71 ml/min; Globulin 3.5 g/dL (2.2-4.2); Glucose 107 mg/dL (74-106); Lipase 53 U/L (73-393); Potassium 3.5 mmol/L (3.5-5.1); Sodium Level 137 mmol/L (136-145)
[2022-02-11 10:10] LABS: Bacteria 0 SEEN /hpf (None Seen); Mucous, Urine 0 SEEN /hpf (<or=2+); Red Blood Cells-Urine 0 SEEN /hpf (0-5); Squamous Epithelial Cells - UA 0 SEEN /hpf (5-10)
[2022-02-11 10:15] LABS: Color, Urine Yellow (Yellow); Glucose, Dipstick Normal (Normal); Ketone-Dipstick Negative (Negative); Leukocyte Esterase-Dipstick Negative /ul (Negative); Nitrite-Dipstick Negative (Negative); Occult Blood-Urine 25 /ul (Negative); Protein-Dipstick Negative (Negative); Urine Bilirubin Dipstick Negative (Negative); Urine Clarity Clear (Clear); Urine Urobilinogen Normal (Normal)
[2022-02-11 10:32] LABS: White Blood Cells 0-5 SEEN /hpf (0-5)
[2022-02-11] MEDS: 0.9% Normal Saline 1,000 ML 150 ML IV (10:34)
--- NOTE | 2022-02-11 11:00 | CT_ITS ---
STUDY: CT ABDOMEN AND PELVIS WITHOUT CONTRAST REASON FOR EXAM: Female, 61 years old. Abd pain -- vomiting and diarrhea. Weakness. History of prior colectomy and primary anastomosis. RADIATION DOSAGE (If Supplied By Facility): CTDIvol = ( 19.62 ) mGy, DLP = ( 998.34 ) mGycm TECHNIQUE: Transaxial images were obtained from the dome of the diaphragm to the symphysis pubis without oral contrast, and without intravenous contrast. Sagittal and coronal images were reconstructed. Individualized dose optimization techniques were used for this CT. COMPARISON: None. FINDINGS: The visualized lung bases are unremarkable. The visualized portions of the heart are within normal limits. Normal liver. There are surgical clips in the gallbladder fossa consistent with a prior cholecystectomy. Normal spleen. Normal pancreas. Normal bilateral adrenal glands. Normal right kidney. Normal left kidney. There is a small hiatal hernia. Normal small intestine. Presents of prior colectomy and primary anastomosis in the rectosigmoid junction. The appendix is visualized and appears normal. Normal abdominal aorta. Normal inferior vena cava. Normal retroperitoneum. Normal urinary bladder. Normal abdominal wall. The patient is status post laminectomy and fusion at the L4-L5 level with prosthetic disc placement. CT/Abdomen/Pelvis without Cont IMPRESSION: Status post primary colectomy in the fusion at the rectosigmoid junction. No acute abnormality is seen. Electronically Signed: Sachin Luciano MD at 11:34 EDT ,
--- NOTE | 2022-02-11 12:14 | NURSING ---
DR SAM WICK
--- NOTE | 2022-02-11 12:18 | NURSING ---
MED SURG SAM INTRACTABLE NAUSEA, VOMITING AND DIARRHEA
--- NOTE | 2022-02-11 12:38 | HP.PCM.HOS_ITS ---
HPI - General General Date of Admission: 02/11/22 Date of Service: 02/11/22 Chief Complaint: Frequent diarrhea more than 10 times per day. nausea and vomiting for about 7 days HPI Narrative AICHA LEWIS, is a 61 F history of diverticulitis status post partial colon resection was brought to ED by EMS for diarrhea for about 10 days. Initially it was intermittent for more than 10 days but has got severe for last 2 to 3 days. Patient usually stool consistency is loose because of colectomy but it has gotten worse, clear watery without blood. Denies hematemesis, melena or hematochezia. Patient also had nausea and vomiting for last 2 to 3 days. Patient is very dry. Sometimes she gets abdominal cramping last 2 to 3 days. Denies fever or chills. Patient also has very severe back pain and follows pain management Dr. Medina. In addition complained of 10 out of 10 lumbar back pain and requested stronger medication. Dilaudid 1 mg IV ordered. Patient also mildly confused as per the daughter. In ED, patient had CT abdomen which did not show any acute abnormality. Patient given IV fluid and further admitted. PFSH Medical History no medical history Home Medications budesonide-formoterol [Symbicort 160/4.5 Mcg Inhaler (SP)] 2 puff INHALATION BID PRN 02/22/18 [History Last Taken 02/28/18] gabapentin [Neurontin] 400 mg PO TID 02/22/18 [History Last Taken Unknown] hydrocodone-acetaminophen 1 - 2 tab PO Q4H PRN PRN 02/22/18 [History Last Taken 02/28/18] lansoprazole [Prevacid] 15 mg PO QODAY 02/22/18 [History Last Taken 02/28/18] zolpidem [Ambien] 10 mg PO QHS 02/22/18 [History Last Taken Unknown] Allergy/AdvReac Type Severity Reaction Status Date / Time No Known Allergies Allergy Verified 02/22/18 11:53 Social History Smoking Status: Former smoker ROS ROS Narrative Constitutional: Reports fatigue and weakness. No fever. Dehydrated HEENT: Reports systems reviewed and no addt'l complaints, except as documented Respiratory/Chest: Denies chest pain, shortness of breath at rest or with exertion Gastrointestinal: Denies coffee ground emesis, hematemesis or vomiting Genitourinary: Denies burning urination or new urinary tract symptoms Musculoskeletal/spine: Severe back pain lumbar area 10/10 intensity localized. History of lumbar surgery. Cannot lay back. Reports joint pain and limited range of motion Neurologic: Denies seizure-like activity. No focal weakness of legs. skin: No ulcer. No rash Endocrinology: Reports systems reviewed and no addt'l complaints, except as documented Hematologic/Lymphatic: Reports systems reviewed and no addt'l complaints, except as documented Rest 14 ROS are negative except as mentioned in HPI Vital Signs Vital Signs Vital Signs: 02/11/22 08:10 02/11/22 08:13 02/11/22 08:14 Temperature 99.3 F H 99.3 F H Temperature Source Temporal Temporal Pulse Rate 105 H 105 H Respiratory Rate 34 H 34 H Respiratory Effort Non-Labored Short of Breath Respiratory Pattern Tachypnea Blood Pressure 155/68 H 155/68 H Blood Pressure Mean 97 97 Pulse Ox 91 91 91 Oxygen Delivery Method Room Air Nasal Cannula Nasal Cannula Oxygen Flow Rate (L/min) 2 2 02/11/22 09:57 02/11/22 11:07 02/11/22 12:32 Temperature 100.2 F H Temperature Source Temporal Pulse Rate 108 H 109 H 110 H Respiratory Rate 26 H 17 16 Respiratory Effort Respiratory Pattern Blood Pressure 157/76 H 132/70 H 158/78 H Blood Pressure Mean 103 90 104 Pulse Ox 100 93 96 Oxygen Delivery Method Nasal Cannula Room Air Room Air Oxygen Flow Rate (L/min) 2 Weight Weight: 225 lb 4.999 oz Body Mass Index (BMI) 35.2 Physical Exam Narrative General: Alert, Oriented x3, Cooperative HEENT: Atraumatic, PERRLA, EOMI, Normocephalic Oral: Oral mucosa dry. No Gingival or Mucosal Lesions/ Ulcerations Neck: Supple, No JVD, Negative Carotid Bruits Lungs: Air entry diminished in bilateral lung bases. No crepitation/rhonchi Cardiovascular: Sinus tachycardia, Normal S1, Normal S2, No murmurs Abdomen: Bowel Sounds Present, Soft, Non Tender, Non-Distended. Lower abdominal surgical scar : No renal angle tenderness. No suprapubic tenderness. Extremities/spine: Lumbar spine and paravertebral muscle tenderness. Midline lumbar surgical scar. No edema, Capillary Refill Less than 3 Seconds Skin: No rashes, No breakdown Musculoskeletal: No Tenderness to Palpation of Joints or Extremities. ROM limited Neurological: Cranial nerves II-XII grossly intact, DTR 2+/4 and Symmetrical, Neuro grossly intact Psych/Mental Status: Normal Affect, Appropriate Results Lab / Micro Data Result Diagrams: 02/11/22 08:50 02/11/22 08:50 Labs: Laboratory Results - last 24 hr 02/11/22 08:50: WBC 13.7 H, RBC 4.12 L, Hgb 13.5, Hct 40.4, MCV 98.1, MCH 32.8 H , MCHC 33.4, RDW Std Deviation 45.1 H, RDW Coeff of Nikhil 12.4, Plt Count 278, MPV 8.7 02/11/22 08:50: Sodium 137, Potassium 3.5, Chloride 102, Carbon Dioxide 29.0, Anion Gap 6, BUN 9, Creatinine 0.95, Estim Creat Clear Calc 59.71, Est GFR (MDRD) Af Amer 76, Est GFR (MDRD) Non-Af 63, BUN/Creatinine Ratio 9.4 L, Glucose 107 H, Calcium 9.0, Total Bilirubin 0.40, AST 16, ALT 25, Alkaline Phosphatase 69, Total Protein 7.0, Albumin 3.5, Globulin 3.5, Albumin/Globulin Ratio 1.0, Lipase 53 L 02/11/22 10:05: Urine Color Yellow, Urine Clarity Clear, Urine pH 8.0, Ur Specific [place] 1.010, Urine Protein Negative, Urine Glucose (UA) Normal, Urine Ketones Negative, Urine Occult Blood 25 H, Urine Nitrite Negative, Urine Bilirubin Negative, Urine Urobilinogen Normal, Ur Leukocyte Esterase Negative, Urine RBC 0 SEEN, Urine WBC 0-5 SEEN, Ur Squamous Epith Cells 0 SEEN, Urine Bacteria 0 SEEN, Urine Mucus 0 SEEN Radiology Impression Chest X-Ray 02/11/22 09:00 IMPRESSION: Normal x-ray examination of the chest. Electronically Signed: Sachin Luciano MD at 9:14 EDT , Abdomen/Pelvis CT 02/11/22 11:00 IMPRESSION: Status post primary colectomy in the fusion at the rectosigmoid junction. No acute abnormality is seen. Electronically Signed: Sachin Luciano MD at 11:34 EDT , Assessment & Plan Assessment/Plan (1) Acute gastroenteritis: PLAN: 1. Acute gastroenterocolitis: Patient is being admitted to [facility] on telemetry. Patient needs vigorous IV fluid resuscitation. IV fluid Ringer lactate 150 mill per hour for 2 L and then reevaluate. Stool for enteric bacteriology panel, C. difficile, WBC and occult blood are ordered. Patient does not have abdominal tenderness and does not have signs and symptoms of acute bacterial enterocolitis/sepsis something that needs antibiotics. No indication for antibiotics. Patient has mild leukocytosis. Monitor intake and output. Mild hypokalemia. Potassium currently replaced. Monitor electrolytes. 2. History of diverticulitis status post colonic resection, most likely the area of rectosigmoid colon as per CT scan: CT scan individually reviewed and no acute abnormality found. 3. COPD: Not in COPD exacerbation or dyspnea. Lungs clear. Continue home Symbicort inhaler. DuoNeb as needed for shortness of breath. 4. Severe lumbar spondylosis with chronic degenerative arthritis: Patient follows pain management. On gabapentin and [place] at home currently patient has severe back pain and is on pain medication regiment. She also gets monthly back injection by Dr. Medina. VTE prophylaxis: Lovenox 40 mg subcu daily Living will/advanced directive/end of life care: Patient does have living will or advanced directive. Her is power of workers compensation attorney for health. After discussion of benefits/risks procedures involved with full code, DNR CC arrest and DNR CC, the patient opted for full code. Patient and her daughter does want artificial life support including intubation, tube feed, ventilator and/chest compression, central venous catheter, vasopressor and DC shock if needed Total time spent in [id number] encounter in discussion of advanced directive 16 minutes. Charges/Coding Visit Charges OBSV E&M: 42634 Initial observation care L3 Procedures Hospitalists Procedures: 62302 Advncd Care Plan 30 Min
[2022-02-11] MEDS: HYDROmorphone 1 MG/ML Syringe IV (12:40)
[2022-02-11 12:52] LABS: Magnesium 1.7 mg/dL (1.6-2.6); Phosphorus 3.2 mg/dL (2.5-4.9)
[2022-02-11] MEDS: Lactated Ringers 1,000 ML 150 ML IV ×2 (13:51→20:47)
[2022-02-11] MEDS: Gabapentin 400 MG Capsule PO ×3 (13:52→21:05)
[2022-02-11] MEDS: Enoxaparin 40 MG/0.4 ML Syringe SC (13:52)
[2022-02-11] MEDS: Potassium Chloride 10mEq/100mL 10 MEQ/100 ML IV.SOLN. 100 MEQ IV BOLUS ×2 (13:59→15:02)
[2022-02-11] MEDS: Albuterol 2.5 MG/3 ML VIAL.NEB. INHALATION (14:20)
--- NOTE | 2022-02-11 16:05 | RAD_ITS ---
EXAM: XR CHEST, 1 VIEW CLINICAL INDICATION: covid Ag positive, no pneumonia symptoms TECHNIQUE: Frontal view of the chest. This report was created using [employer] report generation technology. COMPARISON: Portable exam from same date. FINDINGS: LUNGS AND PLEURAL SPACES: Unremarkable. No consolidation or edema. No pneumothorax. No effusion. HEART: Unremarkable. Cardiac silhouette not enlarged. MEDIASTINUM: Central airways and mediastinal contour are unremarkable. BONES/JOINTS: Unremarkable. SOFT TISSUES: Unremarkable. RAD/Chest 1 View (Portable) IMPRESSION: No radiographic evidence of acute cardiopulmonary disease. Electronically Signed: Jagdish Meadows MD at 23:19 EDT ,
[2022-02-11] MEDS: Acetaminophen 325 MG Tablet 650 MG PO (16:13)
[2022-02-11] MEDS: dexAMETHasone 10 MG/ML Vial 6 MG IV (17:41)
[2022-02-11] MEDS: Pantoprazole Sodium 20 MG Tablet PO (21:05)
[2022-02-12] VITALS (12 sets, daily range): BP systolic 126–139; BP diastolic 73–90; PULSE 76–99; RESP 16–18; TEMP 36.6–36.9; O2SAT 93–96
[2022-02-12] MEDS: Acetaminophen 325 MG Tablet 650 MG PO ×3 (02:57→20:40)
[2022-02-12] MEDS: Ondansetron 4 MG/2 ML Vial IV ×2 (02:57→11:10)
[2022-02-12 05:48] LABS: Absolute Lymphocyte Count 0.43 X10^3/uL (0.83-4.51); Absolute Neutrophil Count 7.2 X10^3/uL (2.0-7.7); Basophil# 0.01 X10^3/uL; Basophil% 0.1 % (0-1); Hematocrit 38.3 % (37-47); Hemoglobin 12.6 g/dL (12.0-15.0); Lymphocyte # 0.43 X10^3/ul (0.83-4.51); Lymphocyte % 5.4 % (19-41); Mean Corp Hgb Conc 32.9 g/dL (32-36); Mean Corpuscular Hgb 32.1 pg (27.0-32.0); Mean Corpuscular Volume 97.7 fL (81-99); Mean Platelet Vol. 8.7 fl (6.2-12.0); Monocyte# 0.23 X10^3/uL; Monocyte% 2.9 % (0-10); NRBC Flagged by Analyzer 0 % (0-5); Neutrophil # 7.19 X10^3/uL (2.7-7.7); Neutrophil % 91.2 % (47-70); POSITIVE DIFFERENTIAL YES; Platelet Count 267 K/mm3 (150-450); RBC Distribution Width CV 12.8 % (11.6-14.6); RBC Distribution Width SD 45.9 fl (35.1-43.9); Red Blood Count 3.92 M/mm3 (4.2-5.4); White Blood Count 7.9 K/mm3 (4.4-11.0)
[2022-02-12 05:55] LABS: Differential Indicated SCAN CRITERIA MET
[2022-02-12 06:47] LABS: Anion Gap 6 (5-15); BUN 9 mg/dL (7-18); BUN/Creat Ratio 12.5 RATIO (10-20); Calcium,Total 8.2 mg/dL (8.5-10.1); Chloride 111 mmol/L (98-107); Creatinine, Serum 0.72 mg/dL (0.55-1.02); EST Glomerular Filtration Rate 87 mL/min (>60); Est Glom Filt Rate - Afr Amer 106 mL/min (>60); Estimated Creatinine Clearance 78.78 ml/min; Glucose 145 mg/dL (74-106); Potassium 3.9 mmol/L (3.5-5.1); Sodium Level 141 mmol/L (136-145)
[2022-02-12] MEDS: Albuterol 2.5 MG/3 ML VIAL.NEB. INHALATION ×2 (07:36→13:29)
[2022-02-12] MEDS: Budesonide Respules 0.5 MG/2 ML AMPUL.NEB. INHALATION (07:36)
[2022-02-12] MEDS: Gabapentin 400 MG Capsule PO ×4 (08:22→20:40)
[2022-02-12] MEDS: oxyCODONE 5 MG Tablet PO ×2 (08:22→15:35)
[2022-02-12] MEDS: Enoxaparin 40 MG/0.4 ML Syringe SC (08:22)
--- NOTE | 2022-02-12 10:55 | PN.HOSP_ITS ---
Subjective Subjective Follow-up for acute gastroenteritis most probably from COVID-19 Objective Data Objective Data Vital Signs: Vital Signs Temp Pulse Resp BP Pulse Ox 98.0 F 99 16 135/88 H 93 02/12/22 08:12 02/12/22 08:12 02/12/22 08:12 02/12/22 08:12 02/12/22 08:12 Oxygen Flow Rate (L/min) 2 Oxygen Delivery Method Room Air Weight: 221 lb 3.2 oz Body Mass Index (BMI) 35.1 Intake & Output: Intake and Output for Last 24 Hours 02/10/22 02/11/22 02/12/22 23:59 23:59 23:59 Intake Total 3122.5 / 3122.5 1480 / 1480 Output Total 200 / 200 Balance 3122.5 / 3122.5 1280 / 1280 Lab / Micro Data Result Diagrams: 02/12/22 05:40 02/12/22 05:40 Labs: Laboratory Results - last 24 hr 02/11/22 08:50: Phosphorus 3.2, Magnesium 1.7 02/11/22 17:15: COVID-19 (JUSTIN) Detected 02/12/22 05:40: WBC 7.9, RBC 3.92 L, Hgb 12.6, Hct 38.3, MCV 97.7, MCH 32.1 H, MCHC 32.9, RDW Std Deviation 45.9 H, RDW Coeff of Nikhil 12.8, Plt Count 267, MPV 8.7, Immature Gran % (Auto) 0.400, Neut % (Auto) 91.2 H, Lymph % (Auto) 5.4 L, [place] % (Auto) 2.9, Eos % (Auto) 0.0, Baso % (Auto) 0.1, Absolute Neuts (auto) 7.2, Absolute Lymphs (auto) 0.43 L, Nucleated RBC % 0 02/12/22 05:40: Sodium 141, Potassium 3.9, Chloride 111 H, Carbon Dioxide 24.0, Anion Gap 6, BUN 9, Creatinine 0.72, Estim Creat Clear Calc 78.78, Est GFR (MDRD) Af Amer 106, Est GFR (MDRD) Non-Af 87, BUN/Creatinine Ratio 12.5, Glucose 145 H, Calcium 8.2 L Micro: Microbiology 02/11/22 12:23 Nasal Secretion SARS-CoV-2 Antigen (Rapid) - Final SARS-CoV-2 (COVID 19) Radiography Diagnostic Testing: Radiology Impression Abdomen/Pelvis CT 02/11/22 11:00 IMPRESSION: Status post primary colectomy in the fusion at the rectosigmoid junction. No acute abnormality is seen. Electronically Signed: Sachin Luciano MD at 11:34 EDT , Chest X-Ray 02/11/22 16:05 IMPRESSION: No radiographic evidence of acute cardiopulmonary disease. Electronically Signed: Jagdish Meadows MD at 23:19 EDT , Physical Exam Narrative Seen and examined Patient having mild shortness of breath on exertion like walking from bed to door otherwise no shortness of breath at rest or dyspnea. Sore throat present. No cough or sputum production. T-max 100.4 Fahrenheit yesterday evening. No fever during daytime. Pulse ox 93% on room air General: Alert, Oriented x3, Cooperative HEENT: Atraumatic, PERRLA, EOMI, Normocephalic Oral: Oral mucosa dry. No Gingival or Mucosal Lesions/ Ulcerations Neck: Supple, No JVD, Negative Carotid Bruits Lungs: Air entry diminished in bilateral lung bases. No crepitation/rhonchi. No tachypnea or hypoxia at rest Cardiovascular: Sinus rhythm, Normal S1, Normal S2, No murmurs Abdomen: Bowel Sounds Present, Soft, Non Tender, Non-Distended. Lower abdominal surgical scar : No renal angle tenderness. No suprapubic tenderness. Extremities/spine: Lumbar spine and paravertebral muscle tenderness. Midline lumbar surgical scar. No edema, Capillary Refill Less than 3 Seconds Skin: No rashes, No breakdown Musculoskeletal: No Tenderness to Palpation of Joints or Extremities. ROM limited Neurological: Cranial nerves II-XII grossly intact, DTR 2+/4 and Symmetrical, Neuro grossly intact Psych/Mental Status: Normal Affect, Appropriate Assessment & Plan Assessment/Plan (1) Acute gastroenteritis: PLAN: 1. Acute gastroenterocolitis most likely due to viral, COVID-19: Patient is being admitted to [facility] on telemetry. Patient needs vigorous IV fluid resuscitation. IV fluid Ringer lactate 150 mill per hour for 2 L and then reevaluate. Stool for enteric bacteriology panel, C. difficile, WBC and occult blood are ordered. Patient does not have abdominal tenderness and does not have signs and symptoms of acute bacterial enterocolitis/sepsis something that needs antibiotics. No indication for antibiotics. Patient has mild leukocytosis. Monitor intake and output. Mild hypokalemia. Potassium currently replaced. Monitor electrolytes. 02/12: Patient diarrhea is resolved, did not had since admission. Mild nausea but no vomiting. Diet advanced to soft diet. No abdominal tenderness or distention. 2. History of diverticulitis status post colonic resection, most likely the area of rectosigmoid colon as per CT scan: CT scan individually reviewed and no acute abnormality found. 3. COPD with mild acute COVID-19 bronchitis/sore throat: Not in COPD exacerbation or dyspnea. Lungs clear. Continue home Symbicort inhaler. DuoNeb as needed for shortness of breath. Patient pulse ox sometimes drops less than 94% on room air therefore started on dexamethasone. Monitor pulse ox. Mucinex D as patient has sore throat. No cough or sputum production. Mild shortness of breath on exertion, she attributes to weakness. Continue incentive spirometry and Pep. 2 chest x-rays individually reviewed and does not show any acute infiltrate, therefore no pneumonia. 4. Severe lumbar spondylosis with chronic degenerative arthritis: Patient follows pain management. On gabapentin and [place] at home currently patient has severe back pain and is on pain medication regiment. She also gets monthly back injection by Dr. Medina. VTE prophylaxis: Lovenox 40 mg subcu daily Anticipate discharge tomorrow if patient does not get hypoxic or progression to respiratory failure Living will/advanced directive/end of life care: Patient does have living will or advanced directive. Her is power of forensic engineer for health. After discussion of benefits/risks procedures involved with full code, DNR CC arrest and DNR CC, the patient opted for full code. Patient and her daughter does want artificial life support including intubation, tube feed, ventilator and/chest compression, central venous catheter, vasopressor and DC shock if needed Total time spent in [id number] encounter in discussion of advanced directive 16 minutes. Charges/Coding Visit Charges Inpatient E&M: 18202 Subs Hosp L2
--- NOTE | 2022-02-12 11:55 | CASEMGMT ---
RN CM called patient in room for initial transition planning/care coordination assessment. RN CM introduced self and role at [facility]. Patient is alert and oriented. Patient willing to participate in assessment and is able to answer all questions appropriately. Care providers, pharmacy, and demographics verified. Patient wishes to discharge home, denies need for home health at this time. Patient states she has no further needs or concerns at this time. CM to follow for discharge planning needs that may arise. PCP: Arnulfo Specialists: ange Barrett Preferred Pharmacy: [facility] retail at discharge Insurance: MMO Prescription Benefit: yes Living Will/HPOA: yes, Tanner Alvarez LNOK: Living Arrangements: Patient lives with in a 2 story home with bed and bath on first floor. 2 steps and railing to enter the home. Patient states she is independent at home Transportation: self, DME/HHC: Patient denies any DME in the home. No preference for DME. After list provided patient agreeable to [employer]. No previous HHC Disposition Plan: Patient to discharge home with family support and follow-up plans in place. Will monitor for home oxygen at discharge. Cheyanne LONGORIA, RN, CM
[2022-02-12] MEDS: Pantoprazole Sodium 40 MG Tablet PO (13:28)
[2022-02-12] MEDS: dexAMETHasone 4 MG Tablet 6 MG PO (13:28)
[2022-02-12] MEDS: guaiFENesin/D-Methorphan TAB.SR.12H 1 TABLET PO ×2 (13:28→20:40)
[2022-02-12] MEDS: Zolpidem Tartrate 5 MG Tablet PO (21:32)
[2022-02-13 03:24] VITALS: BP 125/87; PULSE 61; RESP 16; TEMP 36.8; O2SAT 93
[2022-02-13 03:31] VITALS: PULSE 66
[2022-02-13 08:00] VITALS: PULSE 95
[2022-02-13] MEDS: Gabapentin 400 MG Capsule PO (08:30)
[2022-02-13] MEDS: Pantoprazole Sodium 40 MG Tablet PO (08:30)
[2022-02-13] MEDS: guaiFENesin/D-Methorphan TAB.SR.12H 1 TABLET PO (08:30)
[2022-02-13] MEDS: dexAMETHasone 4 MG Tablet 6 MG PO (08:30)
[2022-02-13] MEDS: oxyCODONE 5 MG Tablet PO (08:31)
[2022-02-13] MEDS: Enoxaparin 40 MG/0.4 ML Syringe SC (08:31)
[2022-02-13 08:38] VITALS: BP 147/93; PULSE 67; RESP 18; TEMP 36.5; O2SAT 96
[2022-02-13 08:49] VITALS: O2SAT 95; O2SAT 97
[2022-02-13] MEDS: Ondansetron 4 MG/2 ML Vial IV (10:44)
--- NOTE | 2022-02-13 11:27 | PCM.DC ---
Discharge Instructions Diet Discharge Diet: No restrictions Activity Discharge Activity: Return to Normal Activity Dressing / Incision Call your doctor if you observe: Fever of 101 or Higher, Shortness of breath, Dizziness, Fainting spells, Swelling in the ankles, Chest pain and Increased palpitations (irregular heartbeat) Follow Up Care Test Results: Test results from this visit will be discussed in further detail at your follow-up appointment, if applicable. Discharge Plan Admission Admit Date/Time: 02/11/22 13:01 Attending Provider: Guille Chin Primary Care Provider: Liang Arredondo Consulting Providers: Darek Randhawa Discharge Orders/Prescriptions Prescriptions: New dexamethasone 2 mg tablet 6 mg PO DAILY 8 Days Qty: 24 RF: 0 ondansetron 4 mg tablet,disintegrating 4 mg PO Q8H PRN (Reason: nausea and vomiting) Qty: 14 RF: 0 Continued hydrocodone-acetaminophen 1 TABLET tablet 1 - 2 tab PO Q4H PRN PRN (Reason: Pain) RF: 0 gabapentin [Neurontin] 400 MG capsule 400 mg PO 4X/DAY RF: 0 lansoprazole [Prevacid] 15 MG capsule 15 mg PO QODAY RF: 0 zolpidem [Ambien] 10 MG tablet 10 mg PO QHS RF: 0 budesonide-formoterol [Symbicort] 1 INHALER inhaler 2 puff inhalation BID PRN (Reason: Sob &/Or Wheezing) RF: 0 Referrals / Follow Up: Liang Arredondo DO [Primary Care Provider] - Within 1 Week Disposition Disposition (needs filled in before D/C Order can be placed): Home, Self Care
--- NOTE | 2022-02-13 11:34 | PCM.DC.SUM ---
Providers Date of Admission: 02/11/22 Primary Care Physician: Dr. Liang Arredondo DO Reason For Visit: GEN WEAKNESS Diagnosis Discharge Diagnosis (1) Acute gastroenteritis: Status: Acute Code(s): K52.9 - Noninfective gastroenteritis and colitis, unspecified Medications at Discharge Home Medications budesonide-formoterol [Symbicort] 2 puff INHALATION BID PRN 02/22/18 gabapentin [Neurontin] 400 mg PO 4X/DAY 02/22/18 hydrocodone-acetaminophen 1 - 2 tab PO Q4H PRN PRN 02/22/18 lansoprazole [Prevacid] 15 mg PO QODAY 02/22/18 zolpidem [Ambien] 10 mg PO QHS 02/22/18 dexamethasone 6 mg PO DAILY 8 Days #24 tab 02/13/22 ondansetron 4 mg PO Q8H PRN #14 tab 02/13/22 Hospital Course Operations None Procedures None Summary of Care Provided Minutes Spent on Discharge: 40 Hospital Course: Per HPI: AICHA LEWIS, is a 61 F history of diverticulitis status post partial colon resection was brought to ED by EMS for diarrhea for about 10 days. Initially it was intermittent for more than 10 days but has got severe for last 2 to 3 days. Patient usually stool consistency is loose because of colectomy but it has gotten worse, clear watery without blood. Denies hematemesis, melena or hematochezia. Patient also had nausea and vomiting for last 2 to 3 days. Patient is very dry. Sometimes she gets abdominal cramping last 2 to 3 days. Denies fever or chills. Patient also has very severe back pain and follows pain management Dr. Medina. In addition complained of 10 out of 10 lumbar back pain and requested stronger medication. Dilaudid 1 mg IV ordered. Patient also mildly confused as per the daughter. In ED, patient had CT abdomen which did not show any acute abnormality. Patient given IV fluid and further admitted. Hospital course: 1. Acute gastroenteritis secondary to COVID-19/history of COPD with a possible COVID-19 bronchitis component?61-year-old female has had nausea, vomiting, diarrhea for the last 10 to 12 days prior to admission. Stool testing was negative however she did test positive for COVID. She is vaccinated and boosted. She is denying any significant shortness of breath and does not need any oxygen. She states that she has not had any diarrhea issues since presentation to the hospital. She is feeling well today, and would like to go home. Ambulatory pulse ox demonstrated no need for home O2 therefore we will continue with Decadron for 10 more days given her COVID-19 status and her history of COPD hopefully to prevent any progression of her disease. I do not anticipate that she should have any severe complications given the fact that she has been vaccinated and boosted. I discussed with her the plan for discharge today she expressed understanding of the risk benefits of going home and would like to go home today. Given the fact that symptoms around the 2-week cyndee and she not requiring any oxygen she is outside of quarantine. 2. History of diverticulitis, severe lumbar spondylosis with chronic degenerative arthritis, GERD are all chronic medical conditions which complicate her care. Her home medications were continued where appropriate Physical Exam Const alert, oriented x3 and no apparent distress General Appearance: cooperative HEENT normocephalic and moist oral mucous membranes Eyes PERRL, EOMs intact bilaterally and conjunctivae normal Neck supple and no JVD Resp normal respiratory effort, no retractions, no use of accessory muscles and clear to auscultation bilaterally Auscultation: Negative for crackles, rales, rhonchi or wheezes Cardio regular rate, regular rhythm, S1 normal heart sound, S2 normal heart sound and no murmurs GI soft to palpation, non-tender and non-distended; Negative for hepatosplenomegaly Extremity no clubbing, cyanosis or edema Skin no rashes or lesions noted Neuro no focal motor deficits and no sensory deficits noted Psych affect normal Appearance: appropriate Weight / BMI Weight Weight: 216 lb 11.43 oz Body Mass Index (BMI) 35.1 ABG / Lab / Microbiology Data Result Diagrams: 02/12/22 05:40 02/12/22 05:40 Microbiology: Microbiology 02/11/22 12:23 Nasal Secretion SARS-CoV-2 Antigen (Rapid) - Final SARS-CoV-2 (COVID 19) D/C Instructions Discharge Diet: No restrictions Call your doctor if you observe: Fever of 101 or Higher, Shortness of breath, Dizziness, Fainting spells, Swelling in the ankles, Chest pain and Increased palpitations (irregular heartbeat) Meaningful Use Info Meaningful Use Diagnoses (Choose all that apply): None applicable Discharge Plan Admission Admit Date/Time: 02/11/22 13:01 Attending Provider: Guille Chin Primary Care Provider: Liang Arredondo Consulting Providers: Darek Randhawa Discharge Orders/Prescriptions Prescriptions: New dexamethasone 2 mg tablet 6 mg PO DAILY 8 Days Qty: 24 RF: 0 ondansetron 4 mg tablet,disintegrating 4 mg PO Q8H PRN (Reason: nausea and vomiting) Qty: 14 RF: 0 Continued hydrocodone-acetaminophen 1 TABLET tablet 1 - 2 tab PO Q4H PRN PRN (Reason: Pain) RF: 0 gabapentin [Neurontin] 400 MG capsule 400 mg PO 4X/DAY RF: 0 lansoprazole [Prevacid] 15 MG capsule 15 mg PO QODAY RF: 0 zolpidem [Ambien] 10 MG tablet 10 mg PO QHS RF: 0 budesonide-formoterol [Symbicort] 1 INHALER inhaler 2 puff inhalation BID PRN (Reason: Sob &/Or Wheezing) RF: 0 Referrals / Follow Up: Liang Arredondo DO [Primary Care Provider] - Within 1 Week Disposition Disposition (needs filled in before D/C Order can be placed): Home, Self Care Charges/Coding Visit Charges Inpatient E&M: 35021 Disch Hosp
--- NOTE | 2022-02-13 11:42 | CASEMGMT ---
Pt has been up independent in room and does not qualify for home oxygen at home at this time. Pt voices no further questions/concerns/needs. Josh LAUREANO CM
[2022-02-13 12:00] VITALS: PULSE 58
--- NOTE | 2022-02-13 12:16 | PHA.DC.MR ---
Pharmacy Service has performed discharge medication reconciliation for this patient. The patient's discharge medication list was reviewed for discrepancies and discrepancies were resolved. Attempted to residence counselor via telephone due to COVID precautions but patient did not answer. Home Medications budesonide-formoterol [Symbicort] 2 puff INHALATION BID PRN 02/22/18 gabapentin [Neurontin] 400 mg PO 4X/DAY 02/22/18 hydrocodone-acetaminophen 1 - 2 tab PO Q4H PRN PRN 02/22/18 lansoprazole [Prevacid] 15 mg PO QODAY 02/22/18 zolpidem [Ambien] 10 mg PO QHS 02/22/18 dexamethasone 6 mg PO DAILY 8 Days #24 tab 02/13/22 ondansetron 4 mg PO Q8H PRN #14 tab 02/13/22
== END 2022-02-13 13:30 | disposition home or self-care (01) | DRG 178 ==
LOC: ED 08:33 → PCU 12:47
PROVIDERS: Admitting Provider Internal Medicine; Emergency Provider Emergency Medicine; PCP Student in an Organized Health Care Education/Training Program; Visit Provider Family Medicine
DX: U07.1 COVID-19 (principal); A08.39 Other viral enteritis; J44.9 Chronic obstructive pulmonary disease, unspecified; M47.896 Other spondylosis, lumbar region; E87.6 Hypokalemia; Z79.51 Long term (current) use of inhaled steroids; Z87.891 Personal history of nicotine dependence
CPT/HCPCS: 36415; 71045; 74176; 80048; 80053; 81001; 83690; 83735; 84100; 85025; 85027; 87635; 87811; 94640; 94667; 94668; 99251; 99285; 99406; J7030; J7120; A4216; G0463; J2405; U0003; U0005

== ENCOUNTER 2022-04-03 18:19 | Emergency (ER) | payer OTHER, SELFPAY ==
[2022-04-03 18:20] VITALS: BP 151/88; PULSE 82; RESP 14; TEMP 36.1; O2SAT 98; BMI 32.8
--- NOTE | 2022-04-03 18:36 | ED.VIS.LOWEX ---
HPI History of Present Illness HPI Narrative: Patient with past medical history of hypertension, reflux, and chronic back pain presents with injury to her left hip and lower extremity. She states that they were at a baseball game and try way, they were going to get on their boat after they changed into their swimming close, and she stepped down onto the dock and was supposed to step back up but fell onto her left side. She denies hitting her head or loss of consciousness. She was unable to get up at first, but now complains of left hip pain. She is nauseated secondary to the pain but has not vomited. She denies other injury. She has pain that is worse with walking and weightbearing and external rotation of her left foot. She denies any knee or ankle pain. No other symptoms. While she fell onto her left shoulder, she states that is fine and can move it all about. She is concerned about the injury to her left hip. Chief Complaint: Lower Extremity Injury [facility] Medical History Back pain Fusion of lumbar spine Home Medications budesonide-formoterol HFA 160 mcg-4.5 mcg/actuation aerosol inhaler (Symbicort) 2 puff inhalation BID PRN Sob &/Or Wheezing 02/22/18 [History Last Taken 02/10/22 08:00] gabapentin 400 mg capsule (Neurontin) 400 mg PO 4X/DAY 02/22/18 [History Last Taken 02/10/22] hydrocodone-acetaminophen 5-325mg 5mg-325mg 1 - 2 tab PO Q4H PRN PRN Pain 02/22/18 [History Last Taken 02/10/22] lansoprazole 15 mg capsule,delayed release (Prevacid) 15 mg PO QODAY 02/22/18 [History Last Taken 02/09/22] zolpidem 10 mg tablet (Ambien) 10 mg PO QHS 02/22/18 [History Last Taken Unknown] dexamethasone 2 mg tablet 6 mg PO DAILY 8 days #24 tabs 02/13/22 [Rx Last Taken Unknown] ondansetron 4 mg disintegrating tablet 4 mg PO Q8H PRN nausea and vomiting #14 tabs 02/13/22 [Rx Last Taken Unknown] Allergy/AdvReac Type Severity Reaction Status Date / Time No Known Allergies Allergy Verified 04/03/22 18:20 Family History Mother Breast cancer Father Esophageal cancer Surgical History History of colon resection Social History Smoking Status: Former smoker ROS ROS ED ROS Narrative Constitutional: No fever, no chills. HEENT: No sore throat. No neck pain. No loss of vision. No rhinorrhea. Cardiovascular: No chest pain. No palpitations. No pedal edema. Respiratory: No cough, no shortness of breath. Abdominal: No abdominal pain. No nausea. No vomiting. Genitourinary: No dysuria. No hematuria. Musculoskeletal: No myalgias. Left hip pain worse with weightbearing and walking. Not tender to touch, but painful with ambulation. Neurologic: No headaches. No dizziness. No lightheadedness. Skin: No rash. No change in color. Psychiatric: No depression. No anxiety. EXAM Physical Exam Narrative Exam Narrative: Afebrile. Vital signs noted. HEENT: Normocephalic. Atraumatic. PERRL, EOMI. Neck soft and supple. No point tenderness or step off. Cardiovascular: Regular rate and rhythm. No murmurs, rubs, or gallops appreciated. Respiratory: No tachypnea. Lungs clear to auscultation bilaterally. Gastrointestinal: Abdomen soft, nontender, with normoactive bowel sounds. No rebound or guarding. Neurological: Awake. Alert. Nonfocal, nonlateralizing. Skin: No rash. Normal color. No pallor. Small nontender ecchymosis left upper extremity. No bony tenderness. Musculoskeletal: No pedal edema. Limited range of motion left hip secondary to pain. Pelvis stable. Neurovascularly intact distally with palpable dorsalis pedis pulse. Pain with external rotation of left leg when logrolling femur. Const Vital Signs: 04/03/22 18:20 Temperature 97 F L Temperature Source Temporal Pulse Rate 82 Respiratory Rate 14 Blood Pressure 151/88 H Blood Pressure Mean 109 Pulse Ox 98 Oxygen Delivery Method Room Air MDM MDM MDM Narrative Medical decision making narrative: Patient was administered intramuscular injections of Zofran and morphine. X-rays of the left hip and pelvis were obtained. X-rays interpreted by myself show no evidence of fracture. No dislocation. Radiology confirmed this. Attempt was made at ambulation. She is able to walk with the assistance of a walker. She would like to be discharged. She states that she has access to a walker. She will apply ice to the affected area and take [id number] analgesics. She was told that there may be a small fracture not seen on x-ray and that if she has continued or increased pain that she should return to the emergency department. I recommended follow-up within the next week with her primary care physician. Return instructions to the emergency department were reviewed. Patient and are agreeable to the plan. She is comfortable being discharged with no obvious fracture on x-ray. Disposition is discharged home in stable condition. Radiography Diagnostic Testing: Clinical Impression(s) from Imaging Studies Hip/Pelvis X-Ray 04/03/22 19:00 IMPRESSION: No acute findings. Electronically Signed: Jagdish Pugh MD at 19:26 EDT Reading Location ID and State: [facility] / [place] , Service support , Discharge Plan Triage Chief Complaint: Lower Extremity Injury ED Provider: Scotty Healy Dx/Rx/DC Orders Clinical Impression: Fall, Contusion of hip, left, Sprain of left hip Instructions: How Your Hip Works, ED Fall with Uncertain Cause, ED Hip Contusion Prescriptions: No Action hydrocodone-acetaminophen 1 TABLET tablet 1 - 2 tab PO Q4H PRN PRN (Reason: Pain) gabapentin [Neurontin] 400 MG capsule 400 mg PO 4X/DAY lansoprazole [Prevacid] 15 MG capsule 15 mg PO QODAY zolpidem [Ambien] 10 MG tablet 10 mg PO QHS budesonide-formoterol [Symbicort] 1 INHALER inhaler 2 puff inhalation BID PRN (Reason: Sob &/Or Wheezing) dexamethasone 2 mg tablet 6 mg PO DAILY 8 Days Qty: 24 0RF ondansetron 4 mg tablet,disintegrating 4 mg PO Q8H PRN (Reason: nausea and vomiting) Qty: 14 0RF Primary Care Provider: Liang Arredondo Referrals: Liang Arredondo, [Primary Care Provider] - 1 Week if not improving Disposition Disposition: Home, Self Care
[2022-04-03] MEDS: Ondansetron 4 MG/2 ML Vial IM (18:50)
[2022-04-03] MEDS: Morphine 4 MG/ML Syringe IM (18:50)
--- NOTE | 2022-04-03 19:00 | RAD_ITS ---
STUDY: X-RAY - PELVIS AND LEFT HIP REASON FOR EXAM: Female, 61 years old. pain trauma TECHNIQUE: XR Hip Unilateral with Pelvis when performed; 2-3 Views COMPARISON: 8.16. FINDINGS: There is a non-specific bowel gas pattern. Normal visualized soft tissue structures. There are surgical changes in the disc at L4-5 as well as bilateral pedicle screws and rods at L4 and L5.There are degenerative changes of the lumbar spine. Normal bilateral iliac wings, sacroiliac joints and visualized sacrum. Normal bilateral superior and inferior pubic rami. Normal pubic symphysis. Normal bilateral ischial tuberosities. Normal visualized femoral head. Normal acetabulum. Normal hip joint. RAD/HIP, UNI W/ Pelvis 2-3 Views IMPRESSION: No acute findings. Electronically Signed: Jagdish Pugh MD at 19:26 EDT ,
[2022-04-03 20:19] VITALS: RESP 16; O2SAT 98
[2022-04-03 20:20] VITALS: PULSE 74; RESP 15
[2022-04-03 20:21] VITALS: BP 129/100
== END 2022-04-03 20:24 | disposition home or self-care (01) ==
PROVIDERS: Emergency Provider Emergency Medicine; PCP Student in an Organized Health Care Education/Training Program; Visit Provider Emergency Medicine
DX: S70.02XA Contusion of left hip, initial encounter (principal); S73.102A Unspecified sprain of left hip, initial encounter; Z87.891 Personal history of nicotine dependence; W10.9XXA Fall (on) (from) unspecified stairs and steps, initial encounter
CPT/HCPCS: 73502; 96372; 99282; J2405

== ENCOUNTER → 2023-01-12 | Outpatient (CLI) | payer OTHER, SELFPAY ==
--- NOTE | 2023-01-12 08:12 | RAD_ITS ---
INDICATION: Postlaminectomy syndrome EXAMINATION/TECHNIQUE: X-RAY - XR Spine Lumbar Min 4 Views COMPARISON: None. FINDINGS: VERTEBRAE: Preserved vertebral body height. No fracture. No spondylolisthesis. Preservation of the normal lumbar lordosis. Surgical hardware from posterior lumbar fusion at L4-5. DISCS: Disc spaces are maintained. INCLUDED ABDOMEN: Included bowel gas pattern is non-obstructive. RAD/L/S Spine Min 4 Views IMPRESSION: Status post L4-5 lumbar fusion with posterior hardware. No acute abnormalities. Electronically Signed: Anshul Nur MD at 0:21 EDT ,
[2023-01-12 09:10] LABS: Anion Gap 2 (5-15); BUN 12 mg/dL (7-18); BUN/Creat Ratio 14.2 RATIO (10-20); Calcium,Total 8.7 mg/dL (8.5-10.1); Chloride 108 mmol/L (98-107); Creatinine, Serum 0.84 mg/dL (0.55-1.02); EST Glomerular Filtration Rate 72 mL/min (>60); Est Glom Filt Rate - Afr Amer 87 mL/min (>60); Glucose 106 mg/dL (74-106); Potassium 4.3 mmol/L (3.5-5.1); Sodium Level 140 mmol/L (136-145)
== END | disposition home or self-care (01) ==
PROVIDERS: PCP Student in an Organized Health Care Education/Training Program; Referring Provider Nurse Practitioner Acute Care; Visit Provider Nurse Practitioner Acute Care
DX: M51.36 Other intervertebral disc degeneration, lumbar region (principal); M54.17 Radiculopathy, lumbosacral region; M47.817 Spondylosis without myelopathy or radiculopathy, lumbosacral region; M48.07 Spinal stenosis, lumbosacral region; M96.1 Postlaminectomy syndrome, not elsewhere classified; Z79.899 Other long term (current) drug therapy
CPT/HCPCS: 36415; 72110; 80048

== ENCOUNTER 2024-03-30 13:00 | Outpatient (RCR) | payer OTHER, SELFPAY ==
--- NOTE | 2024-03-28 09:43 | HP.PTEVAL ---
Patient's Visit Information Visit Information Visit Information: AICHA LEWIS is a 63 year old F referred to Physical Therapy by [employer]. Amparo Andrade with a diagnosis of LUMBAR POST LAMINECTOMY SYNDROME. Date of Evaluation: 03/28/24 Physical Therapist: Ronny Negro, PT, Cert MDT, OCS Visit Plan Frequency: 2x /Week Duration: 4 Weeks Plan: PT INTERVENTIONS DLS ,POSTURAL EX'S ,LE FLEXABILITY ,BLE STRENGTHENING (HIP) ,LUMBAR FLEXION AND MODALITIES NEEDED Subjective Subjective: This 63 y/o female presents to physical therapy with lumbar pain and radicular symptoms . Patient has h/o lumbar surgery fusion L4-5 2004 and 2nd s/p laminectomy lumbar.Past 2 months symptoms worse pain worse. Patient seen Dr Ellsworth last Dec had MRI showed stenosis and scar tissue. Patient is under care of pain management Dr Medina with epidural injections and ablashia. Currently , patient is waiting on pain stimulator. Medication gabapentin and percocet. Location of pain located symmetrical lumbar to hips and paresthesia/tingling below knee. Aggravating factors walking < 5 mins and standing ,and unable to bend or lifting. Alleviating factors medications rest. Coughing/sneezing - .Bowel/bladder-. Patient sleeping good at night. Patient condition affects QOL and function.Patient goals to decrease pain and improve function. SOCIAL: VOCATION: part -time oil and [employer] Pain Bilateral Back: Pain Intensity (Out of 10): 5 Pain Intensity Range: 10 Comment: worse with walking/standing Right Lower Extremity: Pain Intensity (Out of 10): 7 Comment: worse Objective Objective: POSTURE: mild forward posture GAIT: reciprocal patten NEURO: c/o paresthesia/tingling right lower leg below knee light touch diminished ,L3-4 ,L4-5,L5-S1 1/3 PALAPTION: LS FLEXABILITY: hamstrings mod tight MMT: ( peak force) quads right 26.1,left 32.1 ,hamstrings 18.7 ,left 20.1, hip flexion right 26.1,left 31.6 ,ankle 4/5 Special Tests L/S Slump test left side: Negative L/S Slump test right side: Negative L/S Left Straight Leg Raise: Negative L/S Right Straight Leg Raise: Negative Balance/Special Test Scores Oswestry Low Back Score: 29 Goals Goal 1:: Patient to be I with HEP for lumbar Goal Time Frame: 4-6 Weeks Goal 2:: Patient to improve lumbar ROM for function of recovery for ADLS and put on shoes Goal Time Frame: 4-6 Weeks Goal 3:: Patient to improve back oswestry score by 5 points to improve QOL and function Goal Time Frame: 4-6 Weeks Goal 4:: Patient improve peak force quads/hams/hip by 5 -10# strength to improve gait Goal Time Frame: 4-6 Weeks Goal 5:: Patient demonstrate 50% improvement with less pain and improved function with ADLS Goal Time Frame: 4-6 Weeks Rehabilitation Potential Physical Therapy Diagnosis: This patient has h/o lumbar surgery fusion and laminectomy with pain ,decrease ROM ,weakness legs worse with walking/standing this benefit from skilled PT Rehabilitation Potential: Good Anticipated Interventions Patient/Client Instruction: Educate patient on: Condition and Plan of Care For the Purpose of:: To decrease pain, To increase ROM, To improve muscle performance and motor function, To improve ability to perform ADL's, To increase tolerance to activity/condition/position, To improve ability of physical actions for home/community/work/leisure, To improve health of tissue, To decrease soft tissue restriction, To increase flexibility/ROM and To improve tolerance to ADL's Therapeutic Exercise to Include: Strength training, Postural training, Flexibilty training, Active ROM and Dynamic Lumbar Stabilization For the Purpose of:: To decrease pain, To decrease swelling/inflammation, To improve muscle performance and motor function, To improve ability to perform ADL's, To increase tolerance to activity/condition/position, To improve ability of physical actions for home/community/work/leisure, To improve health of tissue, To decrease soft tissue restriction, To increase flexibility/ROM and To improve tolerance to ADL's TENS: Yes IF ES: Yes Cryotherapy (ice pack, ice massage): Yes Thermo therapy (hot pack): Yes Ultrasound (thermal/non thermal): Yes For the Purpose of:: To decrease pain, To increase ROM, To improve nutrient delivery to tissue, To increase oxygenation perfusion, To improve health of tissue and To decrease soft tissue restriction Text: Thank you for the opportunity to evaluate your patient. For Medicare and Medicare HMO plans, please review the plan of care and approve it. It will need to be FAXED BACK to us at [phone] for Medicare purposes. For Medicare only, by signing this I certify the plan of care. Please let me know if there are questions or concerns regarding this plan of care. Physician Signature: Date:
--- NOTE | 2024-05-12 13:20 | HP.PTDCNRP_ITS ---
Patient Information Patient Information: AICHA LEWIS was seen in my office for initial evaluation on 03/28/24. The following Plan of Care was established for this patient: POC Established Initial Frequency: 2x /Week Initial Duration: 4 Weeks Anticipated Interventions Patient/Client Instruction: Educate patient on: Condition and Plan of Care For the Purpose of:: To decrease pain, To increase ROM, To improve muscle performance and motor function, To improve ability to perform ADL's, To increase tolerance to activity/condition/position, To improve ability of physical actions for home/community/work/leisure, To improve health of tissue, To decrease soft tissue restriction, To increase flexibility/ROM and To improve tolerance to ADL's Therapeutic Exercise to Include: Strength training, Postural training, Flexibilty training, Active ROM and Dynamic Lumbar Stabilization For the Purpose of:: To decrease pain, To decrease swelling/inflammation, To improve muscle performance and motor function, To improve ability to perform ADL's, To increase tolerance to activity/condition/position, To improve ability of physical actions for home/community/work/leisure, To improve health of tissue, To decrease soft tissue restriction, To increase flexibility/ROM and To improve tolerance to ADL's TENS: Yes IF ES: Yes Cryotherapy (ice pack, ice massage): Yes Thermo therapy (hot pack): Yes Ultrasound (thermal/non thermal): Yes For the Purpose of:: To decrease pain, To increase ROM, To improve nutrient delivery to tissue, To increase oxygenation perfusion, To improve health of tiss ue and To decrease soft tissue restriction Last Seen Last Seen: This patient was last seen in our office . Pertinent comments regarding their Physical therapy will appear below: Patient seen for PT for lumbar pain syndrome for HEP At this point I will be discontinuing this patient from physical therapy. I would be happy to see this patient again in the future if found appropriate by the physician. Thank you! Ronny Negro, PT, Cert MDT, OCS Balance/Gait/Functional tests Balance/Special Test Scores Oswestry Low Back Score: 29
== END 2024-03-30 19:00 | disposition home or self-care (01) ==
LOC: PT 13:00
PROVIDERS: PCP Student in an Organized Health Care Education/Training Program; Referring Provider Clinical Nurse Specialist Adult Health; Visit Provider Clinical Nurse Specialist Adult Health
DX: M96.1 Postlaminectomy syndrome, not elsewhere classified (principal)
CPT/HCPCS: 97110; 97162